=== PATIENT | male | born 1940 | race Caucasian/White ===

== ENCOUNTER 2017-03-31 12:25 | Day surgery (SDC) | payer OTHER ==
[~2017-03-31 12:25] MED LIST: ALBU90OI6 INH; ALBU90OI61 INH; AMOCLA500 PO; AMOCLA875; AMOCLA875 PO; AMOX1XR PO; ASPI325; ASPI325 PO; ASPI325EC; ASPI500 PO; ASPI81EC PO; ATOR10; ATOR10 PO; BUME1 PO; BUME2; BUME2 PO; Bactrim Ds Tab1 EACH PO; CALCA500CH PO; CARV3.125 PO; CLIN300 PO; CLOP75 PO; CRUTCH3 XX; Centrum Silver1 EAC1 PO; Culturelle1 CAP PO; DIPASPER; DIPASPER PO; ECOTRIN PO; ESCI10; ESCI10 PO; ESCI20 PO; FURO40; HYDACE5; HYDACE5 PO; HYDR1TAB94; HYDR1TAB94 PO; Hydrocodone-Ap1 EA23 PO; INSLI100I SC; INSR10I; INSR10I SC; INSU7030P; INSUASPI; INSUASPI SS; INSUGL100V SQ; INSULANI; INSULANI SC; INSULANPEN; INSULANPEN SC; INSULANPEN SQ; ISOMON30 PO; Ibuprofen Ib200 MG PO; LATANOPROST2.5 ML RIGHTEYE; LEVFLO500 PO; LISI20; LISI20 PO; Lantus100 UNIT/1; METF500; METF500 PO; METO10 PO; METO25 PO; METO25ER PO; MULT50L PO; MULVITA; NAPR500 PO; Norco 5-325 Ta1 EACH PO; Novolog100 UNIT/1; OMEP20ER; OMEP20ER PO; OXYACE5T PO; Omeprazole20 M1 PO; PIOG15; PIOG30 PO; POTA10T PO; POTCHL10ER; POTCHL10ER PO; PROM25 PO; QUET25 PO; RANI150; RXCLIN PO; RXHYDACE PO; RXONDA4ODT MM; RXPROACE PO; SENIOR TABS1 EACH PO; SPIR25; SPIR25 PO; SULTRIDS PO; TEMA15; TEMA15 PO; TRAM50 PO; UNK ABX; ZOLP5; ZOLP5 PO; [UNRECOGNIZED DRUG - CODE]; [UNRECOGNIZED DRUG - CODE] PO; [UNRECOGNIZED DRUG - OTHER]; [UNRECOGNIZED DRUG - REMARK]
[2017-06-28] MEDS ORDERED: Novolog100 UNIT/2 SC (11:11)
== END 2017-03-31 16:10 | disposition home or self-care (01) ==
LOC: WOUND 12:25
DX: Z48.00 Encounter for change or removal of nonsurgical wound dressing (principal); E11.621 Type 2 diabetes mellitus with foot ulcer; L97.411 Non-pressure chronic ulcer of right heel and midfoot limited to breakdown of skin; I25.84 Coronary atherosclerosis due to calcified coronary lesion; I13.0 Hypertensive heart and chronic kidney disease with heart failure and stage 1 through stage 4 chronic kidney disease, or unspecified chronic kidney disease; I50.9 Heart failure, unspecified; N18.3 Chronic kidney disease, stage 3 (moderate); E11.22 Type 2 diabetes mellitus with diabetic chronic kidney disease; I73.9 Peripheral vascular disease, unspecified; E11.39 Type 2 diabetes mellitus with other diabetic ophthalmic complication; H54.8 Legal blindness, as defined in USA
CPT/HCPCS: 87070; 87205; G0463

== ENCOUNTER 2017-06-28 10:01 | Emergency (ER) | payer OTHER ==
[~2017-06-28] VITALS: Ht 177.8 cm; Wt 104.8 kg
[2017-06-28] MEDS ORDERED: BUME2 PO (10:49)
[2017-06-28] MEDS ORDERED: CLOP75 PO (10:49)
[2017-06-28] MEDS ORDERED: ATOR10 PO (10:49)
[2017-06-28] MEDS ORDERED: HYDR1TAB94 PO (10:50)
[2017-06-28] MEDS ORDERED: INSULANPEN SC (10:53)
[2017-06-28] MEDS ORDERED: METO25 PO (11:10)
[2017-06-28] MEDS ORDERED: Novolog100 UNIT/2 (11:11)
[2017-06-28] MEDS ORDERED: Omeprazole20 M1 PO (11:11)
[2017-06-28] MEDS ORDERED: Micro-K10 MEQ PO (11:11)
== END 2017-06-28 12:52 | disposition home or self-care (01) ==
LOC: ER 10:01
DX: E11.649 Type 2 diabetes mellitus with hypoglycemia without coma (principal); I13.0 Hypertensive heart and chronic kidney disease with heart failure and stage 1 through stage 4 chronic kidney disease, or unspecified chronic kidney disease; I50.9 Heart failure, unspecified; E11.22 Type 2 diabetes mellitus with diabetic chronic kidney disease; N18.3 Chronic kidney disease, stage 3 (moderate); Z86.73 Personal history of transient ischemic attack (TIA), and cerebral infarction without residual deficits; K21.9 Gastro-esophageal reflux disease without esophagitis; E66.9 Obesity, unspecified; Z79.82 Long term (current) use of aspirin; Z79.2 Long term (current) use of antibiotics; Z79.899 Other long term (current) drug therapy; Z88.5 Allergy status to narcotic agent; Z79.4 Long term (current) use of insulin; Z79.891 Long term (current) use of opiate analgesic
CPT/HCPCS: 82947; 96374; 99283

== ENCOUNTER 2017-07-22 10:01 | Inpatient (IN) | payer OTHER ==
[~2017-07-22] VITALS: Ht 177.8 cm; Wt 102.9 kg
[~2017-07-22 10:01] MED LIST changes: +Micro-K10 MEQ PO; +Novolog100 UNIT/2 SC
[2017-07-22 10:42] LABS: BASOPHILS ABSOLUTE AUTO 0.03 K/mm3 (0.00-0.23); BASOPHILS PERCENT AUTO 0 % (0-2); EOSINOPHILS ABSOLUTE AUTO 0.95 K/mm3 (0.00-0.68); EOSINOPHILS PERCENT AUTO 7 % (0-6); Hematocrit 40.9 % (37.0-53.0); Hemoglobin 13.5 g/dL (13.5-17.5); IMMATURE GRAN ABSOLUTE AUTO 0.06 K/mm3 (0.00-0.10); IMMATURE GRAN PERCENT AUTO 0 % (0-1); LYMPHOCYTES ABSOLUTE AUTO 1.74 K/mm3 (0.84-5.20); LYMPHOCYTES PERCENT AUTO 12 % (21-46); MONOCYTES ABSOLUTE AUTO 0.81 K/mm3 (0.16-1.47); MONOCYTES PERCENT AUTO 6 % (4-13); Mean Corpuscular HGB 28.5 pg (26.0-34.0); Mean Corpuscular Volume 87 fL (80-100); Mean Platelet Volume 10.6 fL (9.1-12.4); NEUTROPHILS PERCENT AUTO 75 % (41-73); Platelet Count 250 K/mm3 (150-400); RDW Coefficient Variation 13.7 % (11.7-14.2); RDW Standard Deviation 43.2 fL (35.1-46.3); Red Blood Cell Count 4.73 M/mm3 (4.30-5.90); White Blood Cell Count 14.19 K/mm3 (4.00-11.30)
[2017-07-22 10:54] LABS: Albumin, Blood 3.4 g/dL (3.4-5.0); Albumin/Globulin Ratio 0.7 (0.8-1.8); Bilirubin, Total 0.5 mg/dL (0.1-1.0); Bun/Creatinine Ratio 26.3 (12.0-20.0); Calcium, Blood 8.6 mg/dL (8.5-10.1); Creatinine, Blood 1.79 mg/dL (0.60-1.20); Globulin, Blood 4.8 g/dL (2.2-4.0); Potassium, Blood 3.9 mmol/L (3.5-5.5); Total Protein, Blood 8.2 g/dL (6.4-8.2)
[2017-07-22] MEDS ORDERED: ASPI325 PO (11:46)
[2017-07-22] MEDS ORDERED: LATANOPROST2.5 ML RIGHTEYE (13:39)
[2017-07-22] MEDS ORDERED: HYDR1TAB94 PO (13:40)
[2017-07-24 04:41] LABS: Hematocrit 36.6 % (37.0-53.0); Hemoglobin 11.9 g/dL (13.5-17.5); Mean Corpuscular HGB 28.6 pg (26.0-34.0); Mean Corpuscular HGB Conc 32.5 g/dL (31.5-36.5); Mean Corpuscular Volume 88 fL (80-100); Mean Platelet Volume 10.2 fL (9.1-12.4); Platelet Count 216 K/mm3 (150-400); RDW Standard Deviation 45.5 fL (35.1-46.3); Red Blood Cell Count 4.16 M/mm3 (4.30-5.90); White Blood Cell Count 9.23 K/mm3 (4.00-11.30)
[2017-07-24 05:13] LABS: Bun/Creatinine Ratio 16.4 (12.0-20.0); Calcium, Blood 8.3 mg/dL (8.5-10.1); Creatinine, Blood 2.13 mg/dL (0.60-1.20); Potassium, Blood 4.1 mmol/L (3.5-5.5)
[2017-07-24 14:17] LABS: Vancomycin, Trough 14.7 ug/mL (5.0-10.0)
[2017-07-25 05:13] LABS: Bun/Creatinine Ratio 16.9 (12.0-20.0); Calcium, Blood 8.1 mg/dL (8.5-10.1); Creatinine, Blood 1.83 mg/dL (0.60-1.20); Potassium, Blood 4.3 mmol/L (3.5-5.5)
[2017-07-25] MEDS ORDERED: Acetaminophen325 M1 PO (12:33)
[2017-07-25] MEDS ORDERED: Artificial Tea1 EACH BOTHEYES (12:35)
[2017-07-25] MEDS ORDERED: Ceftriaxone2 G1 IV (12:36)
== END 2017-07-25 17:08 | DRG 872 ==
LOC: ER 10:01 → MEDS 10:02 → ENPENDDIS 07-25 09:30 → MEDS 07-25 17:08
PROVIDERS: Family Medicine; Internal Medicine
DX: A41.9 Sepsis, unspecified organism (principal); I50.32 Chronic diastolic (congestive) heart failure; I13.0 Hypertensive heart and chronic kidney disease with heart failure and stage 1 through stage 4 chronic kidney disease, or unspecified chronic kidney disease; E11.22 Type 2 diabetes mellitus with diabetic chronic kidney disease; E11.51 Type 2 diabetes mellitus with diabetic peripheral angiopathy without gangrene; E11.40 Type 2 diabetes mellitus with diabetic neuropathy, unspecified; N18.3 Chronic kidney disease, stage 3 (moderate); I25.10 Atherosclerotic heart disease of native coronary artery without angina pectoris; E11.39 Type 2 diabetes mellitus with other diabetic ophthalmic complication; H54.8 Legal blindness, as defined in USA; E11.621 Type 2 diabetes mellitus with foot ulcer; K21.9 Gastro-esophageal reflux disease without esophagitis; Z89.422 Acquired absence of other left toe(s); Z89.421 Acquired absence of other right toe(s); Z95.1 Presence of aortocoronary bypass graft; Z87.891 Personal history of nicotine dependence; Z88.5 Allergy status to narcotic agent; Z79.02 Long term (current) use of antithrombotics/antiplatelets; Z79.4 Long term (current) use of insulin; Z79.899 Other long term (current) drug therapy; Z86.73 Personal history of transient ischemic attack (TIA), and cerebral infarction without residual deficits
CPT/HCPCS: 36415; 73630; 73718; 80048; 80053; 80202; 82947; 83605; 85025; 85027; 87070; 87077; 87147; 87186; 87205; 96365; 97110; 97116; 97162; 97165; 97530; 97535; 99285; G8978; G8979; G8987; G8988; J0696; J1815; J2543; J3370; J7030; J7050

== ENCOUNTER → 2017-09-02 | Outpatient (CLI) | payer OTHER ==
[~2017-09-02] MED LIST changes: +Acetaminophen325 M1 PO; +Artificial Tea1 EACH BOTHEYES; +Ceftriaxone2 G1 IV
== END ==
LOC: LAB SHORT 15:38 → LAB 15:38
DX: E11.621 Type 2 diabetes mellitus with foot ulcer (principal)
CPT/HCPCS: 87070; 87077; 87147; 87186; 87205

== ENCOUNTER 2017-09-19 12:07 | Day surgery (SDC) | payer OTHER | END 2017-09-19 13:58 | disposition home or self-care (01) | LOC: WOUND | DX: Z48.00 Encounter for change or removal of nonsurgical wound dressing (principal); E11.621 Type 2 diabetes mellitus with foot ulcer; L97.512 Non-pressure chronic ulcer of other part of right foot with fat layer exposed; I25.84 Coronary atherosclerosis due to calcified coronary lesion; I12.9 Hypertensive chronic kidney disease with stage 1 through stage 4 chronic kidney disease, or unspecified chronic kidney disease; I10 Essential (primary) hypertension; I25.10 Atherosclerotic heart disease of native coronary artery without angina pectoris; I73.9 Peripheral vascular disease, unspecified; E11.22 Type 2 diabetes mellitus with diabetic chronic kidney disease; N18.3 Chronic kidney disease, stage 3 (moderate); H54.8 Legal blindness, as defined in USA; E11.39 Type 2 diabetes mellitus with other diabetic ophthalmic complication; I50.9 Heart failure, unspecified; Z87.891 Personal history of nicotine dependence; Z88.5 Allergy status to narcotic agent; Z89.421 Acquired absence of other right toe(s); Z89.412 Acquired absence of left great toe | CPT/HCPCS: G0463 ==

== ENCOUNTER 2018-01-11 00:09 | Day surgery (SDC) | payer OTHER | END 2018-01-11 22:57 | disposition home or self-care (01) | LOC: WOUND 00:09 | DX: E11.621 Type 2 diabetes mellitus with foot ulcer (principal); E11.40 Type 2 diabetes mellitus with diabetic neuropathy, unspecified; E11.51 Type 2 diabetes mellitus with diabetic peripheral angiopathy without gangrene; L97.519 Non-pressure chronic ulcer of other part of right foot with unspecified severity; I87.2 Venous insufficiency (chronic) (peripheral); Z89.421 Acquired absence of other right toe(s); Z89.419 Acquired absence of unspecified great toe ==

== ENCOUNTER 2018-02-15 14:20 | Day surgery (SDC) | payer OTHER | END 2018-02-15 22:39 | disposition home or self-care (01) | LOC: RAD 14:20 | DX: E11.621 Type 2 diabetes mellitus with foot ulcer (principal); Z89.421 Acquired absence of other right toe(s); Z89.419 Acquired absence of unspecified great toe; N18.3 Chronic kidney disease, stage 3 (moderate); E11.40 Type 2 diabetes mellitus with diabetic neuropathy, unspecified; I73.9 Peripheral vascular disease, unspecified; I87.2 Venous insufficiency (chronic) (peripheral) | CPT/HCPCS: 73630 ==

== ENCOUNTER 2018-03-01 13:00 | Day surgery (SDC) | payer OTHER | END 2018-03-01 22:50 | disposition home or self-care (01) | LOC: WOUND 13:00 | DX: E11.621 Type 2 diabetes mellitus with foot ulcer (principal); L97.512 Non-pressure chronic ulcer of other part of right foot with fat layer exposed; N18.3 Chronic kidney disease, stage 3 (moderate); E11.40 Type 2 diabetes mellitus with diabetic neuropathy, unspecified; I73.9 Peripheral vascular disease, unspecified; I87.2 Venous insufficiency (chronic) (peripheral); Z89.419 Acquired absence of unspecified great toe; Z89.421 Acquired absence of other right toe(s) ==

== ENCOUNTER 2018-03-03 00:11 | Day surgery (SDC) | payer OTHER | END 2018-03-03 22:50 | disposition home or self-care (01) | LOC: WOUND 00:11 | DX: E11.621 Type 2 diabetes mellitus with foot ulcer (principal); L97.512 Non-pressure chronic ulcer of other part of right foot with fat layer exposed; L97.929 Non-pressure chronic ulcer of unspecified part of left lower leg with unspecified severity; Z89.421 Acquired absence of other right toe(s); Z89.419 Acquired absence of unspecified great toe; N18.3 Chronic kidney disease, stage 3 (moderate); E11.40 Type 2 diabetes mellitus with diabetic neuropathy, unspecified; I73.9 Peripheral vascular disease, unspecified; I87.2 Venous insufficiency (chronic) (peripheral) | CPT/HCPCS: G0463 ==

== ENCOUNTER 2018-03-15 12:55 | Day surgery (SDC) | payer OTHER | END 2018-03-15 22:44 | disposition home or self-care (01) | LOC: WOUND 12:55 | DX: E11.621 Type 2 diabetes mellitus with foot ulcer (principal); L97.512 Non-pressure chronic ulcer of other part of right foot with fat layer exposed; Z89.421 Acquired absence of other right toe(s); Z89.419 Acquired absence of unspecified great toe; N18.3 Chronic kidney disease, stage 3 (moderate); E11.40 Type 2 diabetes mellitus with diabetic neuropathy, unspecified; I73.9 Peripheral vascular disease, unspecified; I87.2 Venous insufficiency (chronic) (peripheral) ==

== ENCOUNTER 2018-03-22 13:50 | Day surgery (SDC) | payer OTHER | END 2018-03-22 22:40 | disposition home or self-care (01) | LOC: WOUND 13:50 | DX: E11.621 Type 2 diabetes mellitus with foot ulcer (principal); L97.512 Non-pressure chronic ulcer of other part of right foot with fat layer exposed; Z89.421 Acquired absence of other right toe(s); Z89.419 Acquired absence of unspecified great toe; N18.3 Chronic kidney disease, stage 3 (moderate); E11.40 Type 2 diabetes mellitus with diabetic neuropathy, unspecified; I73.9 Peripheral vascular disease, unspecified; I87.2 Venous insufficiency (chronic) (peripheral); Z79.4 Long term (current) use of insulin | CPT/HCPCS: G0463 ==

== ENCOUNTER 2018-03-29 00:25 | Day surgery (SDC) | payer OTHER | END 2018-03-29 22:38 | disposition home or self-care (01) | LOC: WOUND 00:25 | DX: E11.621 Type 2 diabetes mellitus with foot ulcer (principal); L97.512 Non-pressure chronic ulcer of other part of right foot with fat layer exposed; Z89.421 Acquired absence of other right toe(s); Z89.419 Acquired absence of unspecified great toe; N18.3 Chronic kidney disease, stage 3 (moderate); E11.40 Type 2 diabetes mellitus with diabetic neuropathy, unspecified; I73.9 Peripheral vascular disease, unspecified; I87.2 Venous insufficiency (chronic) (peripheral) | CPT/HCPCS: G0463 ==

== ENCOUNTER 2018-04-05 00:22 | Day surgery (SDC) | payer OTHER | END 2018-04-05 22:41 | disposition home or self-care (01) | LOC: WOUND 00:22 | DX: E11.621 Type 2 diabetes mellitus with foot ulcer (principal); L97.512 Non-pressure chronic ulcer of other part of right foot with fat layer exposed; Z89.421 Acquired absence of other right toe(s); Z89.419 Acquired absence of unspecified great toe; N18.3 Chronic kidney disease, stage 3 (moderate); E11.40 Type 2 diabetes mellitus with diabetic neuropathy, unspecified; I73.9 Peripheral vascular disease, unspecified; I87.2 Venous insufficiency (chronic) (peripheral); Z79.01 Long term (current) use of anticoagulants; Z79.4 Long term (current) use of insulin | CPT/HCPCS: G0463 ==

== ENCOUNTER 2018-04-12 13:00 | Day surgery (SDC) | payer OTHER | END 2018-04-12 22:50 | disposition home or self-care (01) | LOC: WOUND 13:00 | DX: E11.621 Type 2 diabetes mellitus with foot ulcer (principal); L97.515 Non-pressure chronic ulcer of other part of right foot with muscle involvement without evidence of necrosis; Z89.421 Acquired absence of other right toe(s); Z89.411 Acquired absence of right great toe; I87.2 Venous insufficiency (chronic) (peripheral); N18.3 Chronic kidney disease, stage 3 (moderate); E11.40 Type 2 diabetes mellitus with diabetic neuropathy, unspecified; I73.9 Peripheral vascular disease, unspecified; Z79.4 Long term (current) use of insulin ==

== ENCOUNTER 2018-04-26 00:22 | Day surgery (SDC) | payer OTHER | END 2018-04-26 22:46 | disposition home or self-care (01) | LOC: WOUND 00:22 | DX: E11.621 Type 2 diabetes mellitus with foot ulcer (principal); L97.512 Non-pressure chronic ulcer of other part of right foot with fat layer exposed; Z89.421 Acquired absence of other right toe(s); Z89.419 Acquired absence of unspecified great toe; N18.3 Chronic kidney disease, stage 3 (moderate); E11.40 Type 2 diabetes mellitus with diabetic neuropathy, unspecified; I73.9 Peripheral vascular disease, unspecified; I87.2 Venous insufficiency (chronic) (peripheral); Z79.4 Long term (current) use of insulin ==

== ENCOUNTER 2018-05-03 00:30 | Day surgery (SDC) | payer OTHER | END 2018-05-03 22:44 | disposition home or self-care (01) | LOC: WOUND 00:30 | DX: E11.621 Type 2 diabetes mellitus with foot ulcer (principal); L97.512 Non-pressure chronic ulcer of other part of right foot with fat layer exposed; Z89.421 Acquired absence of other right toe(s); Z89.411 Acquired absence of right great toe; I87.2 Venous insufficiency (chronic) (peripheral); N18.3 Chronic kidney disease, stage 3 (moderate); E11.40 Type 2 diabetes mellitus with diabetic neuropathy, unspecified; I73.9 Peripheral vascular disease, unspecified; Z79.4 Long term (current) use of insulin; Z79.01 Long term (current) use of anticoagulants | CPT/HCPCS: G0463 ==

== ENCOUNTER 2018-05-24 00:26 | Day surgery (SDC) | payer OTHER | END 2018-05-24 22:48 | disposition home or self-care (01) | LOC: WOUND | DX: E11.621 Type 2 diabetes mellitus with foot ulcer (principal); L97.512 Non-pressure chronic ulcer of other part of right foot with fat layer exposed; E11.40 Type 2 diabetes mellitus with diabetic neuropathy, unspecified; E11.51 Type 2 diabetes mellitus with diabetic peripheral angiopathy without gangrene; E11.36 Type 2 diabetes mellitus with diabetic cataract; E11.39 Type 2 diabetes mellitus with other diabetic ophthalmic complication; H42 Glaucoma in diseases classified elsewhere; E11.69 Type 2 diabetes mellitus with other specified complication; M86.9 Osteomyelitis, unspecified; I13.0 Hypertensive heart and chronic kidney disease with heart failure and stage 1 through stage 4 chronic kidney disease, or unspecified chronic kidney disease; I50.9 Heart failure, unspecified; N18.3 Chronic kidney disease, stage 3 (moderate); I25.10 Atherosclerotic heart disease of native coronary artery without angina pectoris; I25.2 Old myocardial infarction; M06.9 Rheumatoid arthritis, unspecified; M10.9 Gout, unspecified; I87.2 Venous insufficiency (chronic) (peripheral); Z89.421 Acquired absence of other right toe(s); Z89.419 Acquired absence of unspecified great toe ==

== ENCOUNTER 2018-06-07 00:05 | Day surgery (SDC) | payer OTHER | END 2018-06-07 22:41 | disposition home or self-care (01) | LOC: WOUND 00:05 | DX: E11.621 Type 2 diabetes mellitus with foot ulcer (principal); L97.512 Non-pressure chronic ulcer of other part of right foot with fat layer exposed; I13.0 Hypertensive heart and chronic kidney disease with heart failure and stage 1 through stage 4 chronic kidney disease, or unspecified chronic kidney disease; I50.9 Heart failure, unspecified; E11.22 Type 2 diabetes mellitus with diabetic chronic kidney disease; N18.3 Chronic kidney disease, stage 3 (moderate); E11.40 Type 2 diabetes mellitus with diabetic neuropathy, unspecified; E11.36 Type 2 diabetes mellitus with diabetic cataract; E11.51 Type 2 diabetes mellitus with diabetic peripheral angiopathy without gangrene; E11.69 Type 2 diabetes mellitus with other specified complication; M86.9 Osteomyelitis, unspecified; I25.2 Old myocardial infarction; G47.30 Sleep apnea, unspecified; M06.9 Rheumatoid arthritis, unspecified; F03.90 Unspecified dementia, unspecified severity, without behavioral disturbance, psychotic disturbance, mood disturbance, and anxiety; Z89.421 Acquired absence of other right toe(s); Z89.419 Acquired absence of unspecified great toe ==

== ENCOUNTER 2018-06-14 00:54 | Day surgery (SDC) | payer OTHER | END 2018-06-14 23:14 | disposition home or self-care (01) | LOC: WOUND 00:54 | DX: E11.621 Type 2 diabetes mellitus with foot ulcer (principal); L97.512 Non-pressure chronic ulcer of other part of right foot with fat layer exposed; I13.0 Hypertensive heart and chronic kidney disease with heart failure and stage 1 through stage 4 chronic kidney disease, or unspecified chronic kidney disease; E11.22 Type 2 diabetes mellitus with diabetic chronic kidney disease; N18.3 Chronic kidney disease, stage 3 (moderate); I50.9 Heart failure, unspecified; I25.10 Atherosclerotic heart disease of native coronary artery without angina pectoris; I25.2 Old myocardial infarction; E11.40 Type 2 diabetes mellitus with diabetic neuropathy, unspecified; I73.9 Peripheral vascular disease, unspecified; I87.2 Venous insufficiency (chronic) (peripheral); Z89.421 Acquired absence of other right toe(s); G47.30 Sleep apnea, unspecified ==

== ENCOUNTER 2018-06-21 08:53 | Day surgery (SDC) | payer OTHER | END 2018-06-21 23:06 | disposition home or self-care (01) | LOC: WOUND 08:53 | DX: E11.621 Type 2 diabetes mellitus with foot ulcer (principal); L97.512 Non-pressure chronic ulcer of other part of right foot with fat layer exposed; E11.40 Type 2 diabetes mellitus with diabetic neuropathy, unspecified; I13.0 Hypertensive heart and chronic kidney disease with heart failure and stage 1 through stage 4 chronic kidney disease, or unspecified chronic kidney disease; E11.22 Type 2 diabetes mellitus with diabetic chronic kidney disease; I50.9 Heart failure, unspecified; N18.3 Chronic kidney disease, stage 3 (moderate); I25.10 Atherosclerotic heart disease of native coronary artery without angina pectoris; I25.2 Old myocardial infarction; I73.9 Peripheral vascular disease, unspecified; I87.2 Venous insufficiency (chronic) (peripheral); Z89.411 Acquired absence of right great toe; G47.30 Sleep apnea, unspecified; Z89.421 Acquired absence of other right toe(s) | CPT/HCPCS: G0463; Q4196 ==

== ENCOUNTER 2018-07-05 08:50 | Day surgery (SDC) | payer OTHER | END 2018-07-05 22:51 | disposition home or self-care (01) | LOC: WOUND 08:50 | DX: E11.621 Type 2 diabetes mellitus with foot ulcer (principal); L97.512 Non-pressure chronic ulcer of other part of right foot with fat layer exposed; E11.22 Type 2 diabetes mellitus with diabetic chronic kidney disease; N18.3 Chronic kidney disease, stage 3 (moderate); I50.9 Heart failure, unspecified; E11.40 Type 2 diabetes mellitus with diabetic neuropathy, unspecified; I25.10 Atherosclerotic heart disease of native coronary artery without angina pectoris; I25.2 Old myocardial infarction; F03.90 Unspecified dementia, unspecified severity, without behavioral disturbance, psychotic disturbance, mood disturbance, and anxiety; I73.9 Peripheral vascular disease, unspecified; I87.2 Venous insufficiency (chronic) (peripheral); G47.30 Sleep apnea, unspecified; Z89.421 Acquired absence of other right toe(s) | CPT/HCPCS: Q4196 ==

== ENCOUNTER 2018-07-12 08:58 | Day surgery (SDC) | payer OTHER | END 2018-07-12 22:43 | disposition home or self-care (01) | LOC: WOUND 08:58 | DX: E11.621 Type 2 diabetes mellitus with foot ulcer (principal); L97.512 Non-pressure chronic ulcer of other part of right foot with fat layer exposed; I13.0 Hypertensive heart and chronic kidney disease with heart failure and stage 1 through stage 4 chronic kidney disease, or unspecified chronic kidney disease; E11.22 Type 2 diabetes mellitus with diabetic chronic kidney disease; N18.3 Chronic kidney disease, stage 3 (moderate); I50.9 Heart failure, unspecified; I25.10 Atherosclerotic heart disease of native coronary artery without angina pectoris; I25.2 Old myocardial infarction; E11.40 Type 2 diabetes mellitus with diabetic neuropathy, unspecified; E11.51 Type 2 diabetes mellitus with diabetic peripheral angiopathy without gangrene; I87.2 Venous insufficiency (chronic) (peripheral); G47.30 Sleep apnea, unspecified; F03.90 Unspecified dementia, unspecified severity, without behavioral disturbance, psychotic disturbance, mood disturbance, and anxiety; Z89.421 Acquired absence of other right toe(s) | CPT/HCPCS: Q4196 ==

== ENCOUNTER 2018-07-19 08:49 | Day surgery (SDC) | payer OTHER | END 2018-07-20 22:54 | disposition home or self-care (01) | LOC: WOUND 08:49 | DX: E11.621 Type 2 diabetes mellitus with foot ulcer (principal); L97.511 Non-pressure chronic ulcer of other part of right foot limited to breakdown of skin; I13.0 Hypertensive heart and chronic kidney disease with heart failure and stage 1 through stage 4 chronic kidney disease, or unspecified chronic kidney disease; E11.22 Type 2 diabetes mellitus with diabetic chronic kidney disease; N18.3 Chronic kidney disease, stage 3 (moderate); I50.9 Heart failure, unspecified; E11.51 Type 2 diabetes mellitus with diabetic peripheral angiopathy without gangrene; E11.40 Type 2 diabetes mellitus with diabetic neuropathy, unspecified; I87.2 Venous insufficiency (chronic) (peripheral); I25.10 Atherosclerotic heart disease of native coronary artery without angina pectoris; I25.2 Old myocardial infarction; G47.30 Sleep apnea, unspecified; Z89.421 Acquired absence of other right toe(s) | CPT/HCPCS: Q4196 ==

== ENCOUNTER 2018-07-26 00:14 | Day surgery (SDC) | payer OTHER | END 2018-07-26 22:46 | disposition home or self-care (01) | LOC: WOUND 00:14 | DX: E11.621 Type 2 diabetes mellitus with foot ulcer (principal); L97.512 Non-pressure chronic ulcer of other part of right foot with fat layer exposed; E11.51 Type 2 diabetes mellitus with diabetic peripheral angiopathy without gangrene; E11.40 Type 2 diabetes mellitus with diabetic neuropathy, unspecified; I87.2 Venous insufficiency (chronic) (peripheral); I13.0 Hypertensive heart and chronic kidney disease with heart failure and stage 1 through stage 4 chronic kidney disease, or unspecified chronic kidney disease; E11.22 Type 2 diabetes mellitus with diabetic chronic kidney disease; N18.3 Chronic kidney disease, stage 3 (moderate); I50.9 Heart failure, unspecified; I25.10 Atherosclerotic heart disease of native coronary artery without angina pectoris; I25.2 Old myocardial infarction; G47.30 Sleep apnea, unspecified; Z89.421 Acquired absence of other right toe(s); Z89.419 Acquired absence of unspecified great toe | CPT/HCPCS: Q4196 ==

== ENCOUNTER 2018-08-02 08:50 | Day surgery (SDC) | payer OTHER | END 2018-08-02 23:01 | disposition home or self-care (01) | LOC: WOUND 08:50 | DX: E11.621 Type 2 diabetes mellitus with foot ulcer (principal); L97.511 Non-pressure chronic ulcer of other part of right foot limited to breakdown of skin; E11.40 Type 2 diabetes mellitus with diabetic neuropathy, unspecified; E11.51 Type 2 diabetes mellitus with diabetic peripheral angiopathy without gangrene; E11.22 Type 2 diabetes mellitus with diabetic chronic kidney disease; N18.3 Chronic kidney disease, stage 3 (moderate); I87.2 Venous insufficiency (chronic) (peripheral); I11.0 Hypertensive heart disease with heart failure; I50.9 Heart failure, unspecified; I25.10 Atherosclerotic heart disease of native coronary artery without angina pectoris; G47.30 Sleep apnea, unspecified; I25.2 Old myocardial infarction; F03.90 Unspecified dementia, unspecified severity, without behavioral disturbance, psychotic disturbance, mood disturbance, and anxiety; Z89.421 Acquired absence of other right toe(s) | CPT/HCPCS: Q4196 ==

== ENCOUNTER 2018-08-09 08:44 | Day surgery (SDC) | payer OTHER | END 2018-08-09 22:56 | disposition home or self-care (01) | LOC: WOUND 08:44 | DX: E11.621 Type 2 diabetes mellitus with foot ulcer (principal); L97.512 Non-pressure chronic ulcer of other part of right foot with fat layer exposed; I13.0 Hypertensive heart and chronic kidney disease with heart failure and stage 1 through stage 4 chronic kidney disease, or unspecified chronic kidney disease; N18.3 Chronic kidney disease, stage 3 (moderate); E11.51 Type 2 diabetes mellitus with diabetic peripheral angiopathy without gangrene; I87.2 Venous insufficiency (chronic) (peripheral); E11.40 Type 2 diabetes mellitus with diabetic neuropathy, unspecified; Z89.419 Acquired absence of unspecified great toe; Z89.421 Acquired absence of other right toe(s) | CPT/HCPCS: Q4196 ==

== ENCOUNTER 2018-08-16 08:49 | Day surgery (SDC) | payer OTHER | END 2018-08-16 22:53 | disposition home or self-care (01) | LOC: WOUND 08:49 | DX: E11.621 Type 2 diabetes mellitus with foot ulcer (principal); L97.512 Non-pressure chronic ulcer of other part of right foot with fat layer exposed; E11.22 Type 2 diabetes mellitus with diabetic chronic kidney disease; I12.9 Hypertensive chronic kidney disease with stage 1 through stage 4 chronic kidney disease, or unspecified chronic kidney disease; N18.3 Chronic kidney disease, stage 3 (moderate); E11.40 Type 2 diabetes mellitus with diabetic neuropathy, unspecified; E11.51 Type 2 diabetes mellitus with diabetic peripheral angiopathy without gangrene; I87.2 Venous insufficiency (chronic) (peripheral); Z89.421 Acquired absence of other right toe(s); Z89.419 Acquired absence of unspecified great toe | CPT/HCPCS: G0463 ==

== ENCOUNTER 2018-09-05 08:40 | Day surgery (SDC) | payer OTHER | END 2018-09-05 23:09 | disposition home or self-care (01) | LOC: WOUND 08:40 | DX: E11.621 Type 2 diabetes mellitus with foot ulcer (principal); L97.511 Non-pressure chronic ulcer of other part of right foot limited to breakdown of skin; E11.40 Type 2 diabetes mellitus with diabetic neuropathy, unspecified; E11.51 Type 2 diabetes mellitus with diabetic peripheral angiopathy without gangrene; I73.9 Peripheral vascular disease, unspecified; I87.2 Venous insufficiency (chronic) (peripheral); I13.0 Hypertensive heart and chronic kidney disease with heart failure and stage 1 through stage 4 chronic kidney disease, or unspecified chronic kidney disease; E11.22 Type 2 diabetes mellitus with diabetic chronic kidney disease; N18.3 Chronic kidney disease, stage 3 (moderate); I50.9 Heart failure, unspecified; I25.2 Old myocardial infarction; F03.90 Unspecified dementia, unspecified severity, without behavioral disturbance, psychotic disturbance, mood disturbance, and anxiety; G47.30 Sleep apnea, unspecified; Z89.421 Acquired absence of other right toe(s) ==

== ENCOUNTER 2018-09-13 12:11 | Inpatient (IN) | payer OTHER ==
[~2018-09-13] VITALS: Ht 175.3 cm; Wt 106.5 kg
[2018-09-13 13:15] LABS: BASOPHILS ABSOLUTE AUTO 0.04 K/mm3 (0.00-0.23); BASOPHILS PERCENT AUTO 0 % (0-2); EOSINOPHILS ABSOLUTE AUTO 0.64 K/mm3 (0.00-0.68); EOSINOPHILS PERCENT AUTO 5 % (0-6); Hematocrit 42.6 % (37.0-53.0); Hemoglobin 13.9 g/dL (13.5-17.5); IMMATURE GRAN ABSOLUTE AUTO 0.05 K/mm3 (0.00-0.10); IMMATURE GRAN PERCENT AUTO 0 % (0-1); LYMPHOCYTES ABSOLUTE AUTO 1.27 K/mm3 (0.84-5.20); LYMPHOCYTES PERCENT AUTO 10 % (21-46); MONOCYTES ABSOLUTE AUTO 0.89 K/mm3 (0.16-1.47); MONOCYTES PERCENT AUTO 7 % (4-13); Mean Corpuscular HGB 29.1 pg (26.0-34.0); Mean Corpuscular HGB Conc 32.6 g/dL (31.5-36.5); Mean Corpuscular Volume 89 fL (80-100); NEUTROPHILS ABSOLUTE AUTO 9.65 K/mm3 (1.96-9.15); NEUTROPHILS PERCENT AUTO 77 % (41-73); Platelet Count 229 K/mm3 (150-400); RDW Coefficient Variation 13.5 % (11.7-14.2); RDW Standard Deviation 44.2 fL (35.1-46.3); Red Blood Cell Count 4.78 M/mm3 (4.30-5.90); White Blood Cell Count 12.54 K/mm3 (4.00-11.30)
[2018-09-13 13:41] LABS: Potassium, Blood 3.8 mmol/L (3.5-5.5)
[2018-09-13 14:05] LABS: Albumin, Blood 3.2 g/dL (3.4-5.0); C-REACTIVE PROTEIN, EXT RANGE 2.42 mg/dL (0.000-0.300)
[2018-09-13 14:07] LABS: Albumin/Globulin Ratio 0.7 (0.8-1.8); Bilirubin, Total 0.7 mg/dL (0.1-1.0); Bun/Creatinine Ratio 22.6 (12.0-20.0); Creatinine, Blood 1.77 mg/dL (0.60-1.20); Globulin, Blood 4.4 g/dL (2.2-4.0); Total Protein, Blood 7.6 g/dL (6.4-8.2)
[2018-09-13] MEDS ORDERED: ALBU90OI61 INH (15:15)
--- NOTE | 2018-09-13 20:29 | NUR ---
called consults to the [address] HUGGINS ordered. They will followup tomorrow.
--- NOTE | 2018-09-13 20:33 | NUR ---
DR Miller called to say he won't consult unless the PT needs a below knee amputation. DR Armando will see PT 09/14/[address] Miller will not unless amputation is recommended for BKA. Will make note.
[2018-09-14 05:49] LABS: BASOPHILS ABSOLUTE AUTO 0.03 K/mm3 (0.00-0.23); BASOPHILS PERCENT AUTO 0 % (0-2); EOSINOPHILS PERCENT AUTO 8 % (0-6); Hematocrit 39.9 % (37.0-53.0); Hemoglobin 13.4 g/dL (13.5-17.5); IMMATURE GRAN ABSOLUTE AUTO 0.03 K/mm3 (0.00-0.10); IMMATURE GRAN PERCENT AUTO 0 % (0-1); LYMPHOCYTES ABSOLUTE AUTO 1.47 K/mm3 (0.84-5.20); LYMPHOCYTES PERCENT AUTO 20 % (21-46); MONOCYTES ABSOLUTE AUTO 0.68 K/mm3 (0.16-1.47); MONOCYTES PERCENT AUTO 9 % (4-13); Mean Corpuscular HGB 29.2 pg (26.0-34.0); Mean Corpuscular HGB Conc 33.6 g/dL (31.5-36.5); Mean Corpuscular Volume 87 fL (80-100); Mean Platelet Volume 10.4 fL (9.1-12.4); NEUTROPHILS ABSOLUTE AUTO 4.66 K/mm3 (1.96-9.15); NEUTROPHILS PERCENT AUTO 62 % (41-73); Platelet Count 227 K/mm3 (150-400); RDW Coefficient Variation 13.5 % (11.7-14.2); RDW Standard Deviation 43.2 fL (35.1-46.3); Red Blood Cell Count 4.59 M/mm3 (4.30-5.90); White Blood Cell Count 7.47 K/mm3 (4.00-11.30)
[2018-09-14 06:24] LABS: Calcium, Blood 8.4 mg/dL (8.5-10.1); Creatinine, Blood 1.81 mg/dL (0.60-1.20); Potassium, Blood 3.8 mmol/L (3.5-5.5)
--- NOTE | 2018-09-14 06:26 | NUR ---
PT WITH CHRONIC NONHEALING RT FOOT WOUND ON [facility] AND [facility] HAS NEW LT 4TH TOE DIABETIC ULCER CULTURES ON September GREW OUT ORGANISM. ON ANCEF q 8 HOURS. 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 HAS ONLY 1 TOE RT FOOT AND 3 TOES ON LT. NO GREAT TOES. PT AGGITATED WHEN DISCUSSING PODIETRY CONSULT. MEDICAL SAFETY DIRECTOR INFORMED. ENCOURAGED PT TO DISCUSS CONCERN WITH MD TO SEE IF OTHER CONSULT AVAILABLE. VOIDS LARGEAMTS OF CLER URINE. DENIES ACUTE PAIN
--- NOTE | 2018-09-14 19:06 | NUR ---
DR WATTERS, ELECTRICAL MAINTENANCE TECHNICIAN, AT BEDSIDE. PT IS REFUSING CARE FROM DR WATTERS. NO OTHER PODIATIST AVAILABLE UNTIL TUESDAY PER DR WATTERS. DR MCCARTNEY AWARE.
--- NOTE | 2018-09-14 19:10 | NUR ---
NO ACUTE CHANGES NOTED THIS SHIFT, WILL CONTINUE TO MONITOR AND REPORT TO ONCOMING RN
--- NOTE | 2018-09-15 07:21 | NUR ---
a+o, blind, cooperative, abx infusing with no s/sx of infiltration or infection, room air, call light in reach, walking rounds completed with day shift
--- NOTE | 2018-09-15 11:54 | NUR ---
BOTH WOUNDS TO BILATERAL FEET CLEANED WITH SKINTEGRITY THEN ANTIBIOTIC ONITMENT AND BANDAID TO RT FOOT WITH ANTIBIOTIC OINTMENT AND NONADHERING DRESSING AND KERLIX TO LEFT. NEW PICS TAKEN. TOLERATED WELL.
--- NOTE | 2018-09-15 18:05 | NUR ---
ALERT. ORIENTED. LEGALLY BLIND. DENIES PAIN TO FEET. PATIENT AWARE PODIATRY MAY NOT BE AVAILABLE TILL TUESDAY. IV PATENT FOR ANTIBIOTICS. TOLERATED SHOWER. UNLABORED RESPIRATIONS. COOPERATIVE. ABLE TO MAKE NEEDS KNOWN. BED IN LOW POSITION. [facility].
--- NOTE | 2018-09-16 05:46 | NUR ---
SHIFT SUMMARY NO ACUTE CHANGES THIS SHIFT. PT HAS SLEPT SOUNDLY T/O NIGHT. AOX4. VSS. DENIES DYSPNEA, N/V/D OR ANY PAIN IN FEET. REPORTS HE HAS CHRONIC N/T TO BLE. RLE HAS SMALL SORE ON BOTTOM OF FOOT, NO DRAINAGE NOTED & DRESSING C/D; LLE HAS SMALL SORE ON 4TH TOE, SCANT AMOUNT DRY CRUSTY DRAINAGE NOTED W/ASSESSMENT, BANDAGE PLACED & C/D/I. WAITING ON PODIATRY CONSULT FOR TUESDAY. CALL LIGHT IN REACH & I WILL CONTINUE TO MONITOR.
--- NOTE | 2018-09-16 17:58 | NUR ---
SUMMARY PT IS A/O X4, LEGALLY BLIND, SBA, IRRIGATOR ASSIST PT TO SHOWER TODAY. WOUND CARE, DRSG CHANGES PROVIDED TO ULCER BOTTOM R FOOT & ULCER ON L 4TH TOE, NO DRAINAGE. HE STATE NO PAIN BLE D/T HX NEUROPATHY. DR MCCARTNEY IN TO SEE HIM THIS AFTERNOON, CHANGE IV ANTIBX TO ROCEPHIN. BLOOD SUGARS @ X'S ELEVATED, DR ADJUST LANTUS DOSE. PT DECLINE TO SEE DR WATTERS (GAS PLANT SPECIALIST) FIR PERSONAL REASONS. DR MCCARTNEY WILL CONSULT ANOTHER GAS PLANT SPECIALIST TOMORROW. VSS.
--- NOTE | 2018-09-17 03:35 | NUR ---
SHIFT SUMMARY NO ACUTE CHANGES TO REPORT THIS SHIFT. PT HAS DENIED NEEDS AND HAS BEEN FREE OF PAIN FROM BILAT FOOT WOUNDS. DRGS REMAIN C/D/I. PT A/OX3, INDEPENDENT AT BEDSIDE WITH URINAL. FOUNDER CEO & PRESIDENT ATTEMPTED TO CALL PODIATRY CONSULT IN FOR PT, BUT DIRECTOR HAIR WAS UNABLE TO PROVIDE INFORMATION ABOUT WHO WAS BEAUTY SPECIALIST FOR TODAY, ONCE THAT INFORMATION IS MADE AVALIBLE SOMEONE WILL CONTACT THE DAY RN. SEE NURSE NOTIFY. RESTFUL NIGHT. BED IN LOWEST POSITION, CALL LIGHT WITHIN REACH. WILL CONTINUE TO MONITOR AND REPORT TO ONCOMING RN.
--- NOTE | 2018-09-17 16:40 | NUR ---
SUMMARY PT HAS STATED NO PAIN/DISCOMFORT T/O DAY. HX BLE NEUROPATHY. DR ISLAS PODIATRY IN TO SEE PT THIS AFTERNOON, ASSESS WOUNDS/ULCERS BILAT FEET. STATE NO SURG INTERVENTION @ THIS TIME. CONTINUE TO TX W ANTIBX & WOUNDCARE CLINIC & F/U WITH HIM AFTER D/C. WOUND CARE/DRSG CHANGE PROVIDED. SPOKE WITH PT CAREGIVER MICHEL TODAY, UPDATED. VSS.
--- NOTE | 2018-09-18 04:28 | NUR ---
SHIFT SUMMARY NO CHNAGES. PT HAS RESTED WELL THIS SHIFT. PT PLESANT AND COOPERATIVE WITH CARE. DENIES PAIN. DRGS INTACT TO BOTH FEET. PT INDEPENDENT IN THE ROOM. NO FRESH COMPLAINTS. PLAN IS TO FOLLOW UP WITH PODIATRY OUTPT. DIRECTOR REVENUE TO CONSULT PT TODAY. WILL CONTINUE TO MONITOR AND REPORT TO ONCOMING RN.
--- NOTE | 2018-09-18 11:55 | NUR ---
PATIENT DISCHARGED HOME WITH FRIEND AL. INFORMED CAREGIVER OF APPOINTMENT TIME WITH DR. ISLAS. LORAINE PEÑA. NO ACUTE ISSUES NOTED.
== END 2018-09-18 11:44 | disposition home or self-care (01) | DRG 872 ==
LOC: ER 12:11 → MEDS 16:15 → ENPENDDIS 09-18 10:30 → MEDS 09-18 11:44
PROVIDERS: Physician Assistant; ADMIT Family Medicine
DX: A41.9 Sepsis, unspecified organism (principal); I50.32 Chronic diastolic (congestive) heart failure; I13.0 Hypertensive heart and chronic kidney disease with heart failure and stage 1 through stage 4 chronic kidney disease, or unspecified chronic kidney disease; E87.1 Hypo-osmolality and hyponatremia; E11.22 Type 2 diabetes mellitus with diabetic chronic kidney disease; N18.3 Chronic kidney disease, stage 3 (moderate); E11.51 Type 2 diabetes mellitus with diabetic peripheral angiopathy without gangrene; H54.8 Legal blindness, as defined in USA; E11.621 Type 2 diabetes mellitus with foot ulcer; L97.529 Non-pressure chronic ulcer of other part of left foot with unspecified severity; B96.4 Proteus (mirabilis) (morganii) as the cause of diseases classified elsewhere; I25.10 Atherosclerotic heart disease of native coronary artery without angina pectoris; K21.9 Gastro-esophageal reflux disease without esophagitis; Z86.73 Personal history of transient ischemic attack (TIA), and cerebral infarction without residual deficits; Z95.1 Presence of aortocoronary bypass graft; Z79.82 Long term (current) use of aspirin; Z79.4 Long term (current) use of insulin; Z79.899 Other long term (current) drug therapy
CPT/HCPCS: 36415; 73630; 73660; 80048; 80053; 82947; 83605; 85025; 85651; 86140; 87040; 87070; 87075; 87077; 87186; 87205; 96365; 96375; 99285-25; G0463; J0690; J0696; J1650; J1815; J3010; J7040

== ENCOUNTER 2018-09-20 10:15 | Day surgery (SDC) | payer OTHER | END 2018-09-20 23:01 | disposition home or self-care (01) | LOC: WOUND 10:15 | DX: E11.621 Type 2 diabetes mellitus with foot ulcer (principal); L97.526 Non-pressure chronic ulcer of other part of left foot with bone involvement without evidence of necrosis; L97.512 Non-pressure chronic ulcer of other part of right foot with fat layer exposed; I13.0 Hypertensive heart and chronic kidney disease with heart failure and stage 1 through stage 4 chronic kidney disease, or unspecified chronic kidney disease; E11.22 Type 2 diabetes mellitus with diabetic chronic kidney disease; N18.3 Chronic kidney disease, stage 3 (moderate); I50.9 Heart failure, unspecified; E11.40 Type 2 diabetes mellitus with diabetic neuropathy, unspecified; E11.51 Type 2 diabetes mellitus with diabetic peripheral angiopathy without gangrene; I73.9 Peripheral vascular disease, unspecified; I87.2 Venous insufficiency (chronic) (peripheral); I25.10 Atherosclerotic heart disease of native coronary artery without angina pectoris; I25.2 Old myocardial infarction; F03.90 Unspecified dementia, unspecified severity, without behavioral disturbance, psychotic disturbance, mood disturbance, and anxiety; G47.30 Sleep apnea, unspecified; Z89.421 Acquired absence of other right toe(s) | CPT/HCPCS: G0463 ==

== ENCOUNTER 2018-09-27 00:29 | Day surgery (SDC) | payer OTHER | END 2018-09-27 22:50 | disposition home or self-care (01) | LOC: WOUND 00:29 | DX: E11.621 Type 2 diabetes mellitus with foot ulcer (principal); L97.512 Non-pressure chronic ulcer of other part of right foot with fat layer exposed; L97.526 Non-pressure chronic ulcer of other part of left foot with bone involvement without evidence of necrosis; E11.22 Type 2 diabetes mellitus with diabetic chronic kidney disease; N18.3 Chronic kidney disease, stage 3 (moderate); E11.40 Type 2 diabetes mellitus with diabetic neuropathy, unspecified; E11.51 Type 2 diabetes mellitus with diabetic peripheral angiopathy without gangrene; I87.2 Venous insufficiency (chronic) (peripheral); Z89.421 Acquired absence of other right toe(s) | CPT/HCPCS: G0463 ==

== ENCOUNTER 2018-10-04 00:51 | Day surgery (SDC) | payer OTHER | END 2018-10-04 22:51 | disposition home or self-care (01) | LOC: WOUND 00:51 | DX: E11.621 Type 2 diabetes mellitus with foot ulcer (principal); L97.419 Non-pressure chronic ulcer of right heel and midfoot with unspecified severity; E11.65 Type 2 diabetes mellitus with hyperglycemia; N18.3 Chronic kidney disease, stage 3 (moderate); E11.40 Type 2 diabetes mellitus with diabetic neuropathy, unspecified; I87.2 Venous insufficiency (chronic) (peripheral); E11.51 Type 2 diabetes mellitus with diabetic peripheral angiopathy without gangrene; Z89.421 Acquired absence of other right toe(s); Z89.411 Acquired absence of right great toe | CPT/HCPCS: G0463 ==

== ENCOUNTER 2018-10-11 00:22 | Day surgery (SDC) | payer OTHER | END 2018-10-11 22:39 | disposition home or self-care (01) | LOC: WOUND 00:22 | DX: E11.621 Type 2 diabetes mellitus with foot ulcer (principal); L97.529 Non-pressure chronic ulcer of other part of left foot with unspecified severity; E11.22 Type 2 diabetes mellitus with diabetic chronic kidney disease; N18.3 Chronic kidney disease, stage 3 (moderate); E11.40 Type 2 diabetes mellitus with diabetic neuropathy, unspecified; E11.51 Type 2 diabetes mellitus with diabetic peripheral angiopathy without gangrene; I87.2 Venous insufficiency (chronic) (peripheral); Z89.421 Acquired absence of other right toe(s); Z89.419 Acquired absence of unspecified great toe | CPT/HCPCS: G0463 ==

== ENCOUNTER 2018-10-18 00:29 | Day surgery (SDC) | payer OTHER | END 2018-10-18 22:48 | disposition home or self-care (01) | LOC: WOUND 00:29 | DX: E11.621 Type 2 diabetes mellitus with foot ulcer (principal); L97.511 Non-pressure chronic ulcer of other part of right foot limited to breakdown of skin; L97.522 Non-pressure chronic ulcer of other part of left foot with fat layer exposed; E11.51 Type 2 diabetes mellitus with diabetic peripheral angiopathy without gangrene; E11.22 Type 2 diabetes mellitus with diabetic chronic kidney disease; N18.3 Chronic kidney disease, stage 3 (moderate); I87.2 Venous insufficiency (chronic) (peripheral); E11.40 Type 2 diabetes mellitus with diabetic neuropathy, unspecified; Z89.421 Acquired absence of other right toe(s); Z89.419 Acquired absence of unspecified great toe | CPT/HCPCS: 87071; 87075; 87205 ==

== ENCOUNTER 2018-10-25 00:22 | Day surgery (SDC) | payer OTHER | END 2018-10-25 23:22 | disposition home or self-care (01) | LOC: WOUND 00:22 | DX: E11.621 Type 2 diabetes mellitus with foot ulcer (principal); L97.521 Non-pressure chronic ulcer of other part of left foot limited to breakdown of skin; L97.518 Non-pressure chronic ulcer of other part of right foot with other specified severity; E11.22 Type 2 diabetes mellitus with diabetic chronic kidney disease; N18.3 Chronic kidney disease, stage 3 (moderate); E11.40 Type 2 diabetes mellitus with diabetic neuropathy, unspecified; I87.2 Venous insufficiency (chronic) (peripheral); Z89.421 Acquired absence of other right toe(s); Z89.419 Acquired absence of unspecified great toe ==

== ENCOUNTER 2018-11-01 00:24 | Day surgery (SDC) | payer OTHER | END 2018-11-01 22:59 | disposition home or self-care (01) | LOC: WOUND 00:24 | DX: E11.621 Type 2 diabetes mellitus with foot ulcer (principal); L97.511 Non-pressure chronic ulcer of other part of right foot limited to breakdown of skin; L97.521 Non-pressure chronic ulcer of other part of left foot limited to breakdown of skin; E11.22 Type 2 diabetes mellitus with diabetic chronic kidney disease; N18.3 Chronic kidney disease, stage 3 (moderate); E11.40 Type 2 diabetes mellitus with diabetic neuropathy, unspecified; I87.2 Venous insufficiency (chronic) (peripheral); Z89.421 Acquired absence of other right toe(s); Z89.419 Acquired absence of unspecified great toe ==

== ENCOUNTER 2018-11-08 00:13 | Day surgery (SDC) | payer OTHER | END 2018-11-08 22:42 | disposition home or self-care (01) | LOC: WOUND 00:13 | DX: E11.621 Type 2 diabetes mellitus with foot ulcer (principal); L97.511 Non-pressure chronic ulcer of other part of right foot limited to breakdown of skin; L97.521 Non-pressure chronic ulcer of other part of left foot limited to breakdown of skin; E11.22 Type 2 diabetes mellitus with diabetic chronic kidney disease; N18.3 Chronic kidney disease, stage 3 (moderate); E11.40 Type 2 diabetes mellitus with diabetic neuropathy, unspecified; I87.2 Venous insufficiency (chronic) (peripheral); Z89.421 Acquired absence of other right toe(s); Z89.419 Acquired absence of unspecified great toe ==

== ENCOUNTER 2018-11-15 00:30 | Day surgery (SDC) | payer OTHER | END 2018-11-15 22:45 | disposition home or self-care (01) | LOC: WOUND 00:30 | DX: E11.621 Type 2 diabetes mellitus with foot ulcer (principal); L97.511 Non-pressure chronic ulcer of other part of right foot limited to breakdown of skin; L97.522 Non-pressure chronic ulcer of other part of left foot with fat layer exposed; I12.9 Hypertensive chronic kidney disease with stage 1 through stage 4 chronic kidney disease, or unspecified chronic kidney disease; E11.22 Type 2 diabetes mellitus with diabetic chronic kidney disease; N18.3 Chronic kidney disease, stage 3 (moderate); E11.40 Type 2 diabetes mellitus with diabetic neuropathy, unspecified; I87.2 Venous insufficiency (chronic) (peripheral); Z89.421 Acquired absence of other right toe(s); Z89.412 Acquired absence of left great toe ==

== ENCOUNTER 2018-11-22 10:27 | Day surgery (SDC) | payer OTHER | END 2018-11-22 23:09 | disposition home or self-care (01) | LOC: WOUND 10:27 | DX: E11.621 Type 2 diabetes mellitus with foot ulcer (principal); L97.511 Non-pressure chronic ulcer of other part of right foot limited to breakdown of skin; I13.0 Hypertensive heart and chronic kidney disease with heart failure and stage 1 through stage 4 chronic kidney disease, or unspecified chronic kidney disease; E11.22 Type 2 diabetes mellitus with diabetic chronic kidney disease; N18.3 Chronic kidney disease, stage 3 (moderate); I50.9 Heart failure, unspecified; E11.40 Type 2 diabetes mellitus with diabetic neuropathy, unspecified; I25.10 Atherosclerotic heart disease of native coronary artery without angina pectoris; I87.2 Venous insufficiency (chronic) (peripheral); Z89.411 Acquired absence of right great toe; Z89.421 Acquired absence of other right toe(s) | CPT/HCPCS: 87071; 87077; 87102; 87186; 87205 ==

== ENCOUNTER 2018-11-29 10:19 | Day surgery (SDC) | payer OTHER | END 2018-11-29 22:53 | disposition home or self-care (01) | LOC: WOUND 10:19 | DX: E11.621 Type 2 diabetes mellitus with foot ulcer (principal); L97.511 Non-pressure chronic ulcer of other part of right foot limited to breakdown of skin; I87.2 Venous insufficiency (chronic) (peripheral); E11.40 Type 2 diabetes mellitus with diabetic neuropathy, unspecified; E11.51 Type 2 diabetes mellitus with diabetic peripheral angiopathy without gangrene; I73.9 Peripheral vascular disease, unspecified; I13.0 Hypertensive heart and chronic kidney disease with heart failure and stage 1 through stage 4 chronic kidney disease, or unspecified chronic kidney disease; E11.22 Type 2 diabetes mellitus with diabetic chronic kidney disease; N18.3 Chronic kidney disease, stage 3 (moderate); I50.9 Heart failure, unspecified; I25.10 Atherosclerotic heart disease of native coronary artery without angina pectoris; Z89.411 Acquired absence of right great toe; Z89.421 Acquired absence of other right toe(s) ==

== ENCOUNTER 2018-12-06 00:18 | Day surgery (SDC) | payer OTHER | END 2018-12-06 22:58 | disposition home or self-care (01) | LOC: WOUND 00:18 | DX: E11.621 Type 2 diabetes mellitus with foot ulcer (principal); L97.511 Non-pressure chronic ulcer of other part of right foot limited to breakdown of skin; L97.522 Non-pressure chronic ulcer of other part of left foot with fat layer exposed; E11.22 Type 2 diabetes mellitus with diabetic chronic kidney disease; N18.3 Chronic kidney disease, stage 3 (moderate); E11.40 Type 2 diabetes mellitus with diabetic neuropathy, unspecified; Z89.421 Acquired absence of other right toe(s); Z89.419 Acquired absence of unspecified great toe ==

== ENCOUNTER 2018-12-13 00:17 | Day surgery (SDC) | payer OTHER | END 2018-12-13 23:16 | disposition home or self-care (01) | LOC: WOUND 00:17 | DX: E11.621 Type 2 diabetes mellitus with foot ulcer (principal); L97.511 Non-pressure chronic ulcer of other part of right foot limited to breakdown of skin; I13.0 Hypertensive heart and chronic kidney disease with heart failure and stage 1 through stage 4 chronic kidney disease, or unspecified chronic kidney disease; E11.22 Type 2 diabetes mellitus with diabetic chronic kidney disease; N18.3 Chronic kidney disease, stage 3 (moderate); I50.9 Heart failure, unspecified; E11.40 Type 2 diabetes mellitus with diabetic neuropathy, unspecified; I25.10 Atherosclerotic heart disease of native coronary artery without angina pectoris; I87.2 Venous insufficiency (chronic) (peripheral); Z89.421 Acquired absence of other right toe(s); Z89.411 Acquired absence of right great toe ==

== ENCOUNTER 2018-12-20 00:42 | Day surgery (SDC) | payer OTHER | END 2018-12-20 22:56 | disposition home or self-care (01) | LOC: WOUND 00:42 | DX: E11.621 Type 2 diabetes mellitus with foot ulcer (principal); L97.518 Non-pressure chronic ulcer of other part of right foot with other specified severity; E11.40 Type 2 diabetes mellitus with diabetic neuropathy, unspecified; I13.0 Hypertensive heart and chronic kidney disease with heart failure and stage 1 through stage 4 chronic kidney disease, or unspecified chronic kidney disease; E11.22 Type 2 diabetes mellitus with diabetic chronic kidney disease; N18.3 Chronic kidney disease, stage 3 (moderate); I50.9 Heart failure, unspecified; I87.2 Venous insufficiency (chronic) (peripheral); Z89.421 Acquired absence of other right toe(s); Z89.411 Acquired absence of right great toe | CPT/HCPCS: G0463 ==

== ENCOUNTER 2019-01-03 00:20 | Day surgery (SDC) | payer OTHER | END 2019-01-03 23:04 | disposition home or self-care (01) | LOC: WOUND 00:20 | DX: E11.621 Type 2 diabetes mellitus with foot ulcer (principal); L97.512 Non-pressure chronic ulcer of other part of right foot with fat layer exposed; E11.22 Type 2 diabetes mellitus with diabetic chronic kidney disease; N18.3 Chronic kidney disease, stage 3 (moderate); E11.40 Type 2 diabetes mellitus with diabetic neuropathy, unspecified; I87.2 Venous insufficiency (chronic) (peripheral); Z89.421 Acquired absence of other right toe(s); Z89.411 Acquired absence of right great toe | CPT/HCPCS: Q4186 ==

== ENCOUNTER 2019-01-10 09:22 | Day surgery (SDC) | payer OTHER | END 2019-01-10 22:45 | disposition home or self-care (01) | LOC: WOUND 09:22 | DX: E11.621 Type 2 diabetes mellitus with foot ulcer (principal); L97.518 Non-pressure chronic ulcer of other part of right foot with other specified severity; E11.22 Type 2 diabetes mellitus with diabetic chronic kidney disease; E11.40 Type 2 diabetes mellitus with diabetic neuropathy, unspecified; N18.3 Chronic kidney disease, stage 3 (moderate); I87.2 Venous insufficiency (chronic) (peripheral); Z89.421 Acquired absence of other right toe(s); Z89.419 Acquired absence of unspecified great toe; Z79.899 Other long term (current) drug therapy; Z79.4 Long term (current) use of insulin | CPT/HCPCS: Q4186 ==

== ENCOUNTER 2019-01-17 00:21 | Day surgery (SDC) | payer OTHER | END 2019-01-17 23:03 | disposition home or self-care (01) | LOC: WOUND 00:21 | DX: E11.621 Type 2 diabetes mellitus with foot ulcer (principal); L97.512 Non-pressure chronic ulcer of other part of right foot with fat layer exposed; E11.40 Type 2 diabetes mellitus with diabetic neuropathy, unspecified; I13.0 Hypertensive heart and chronic kidney disease with heart failure and stage 1 through stage 4 chronic kidney disease, or unspecified chronic kidney disease; E11.22 Type 2 diabetes mellitus with diabetic chronic kidney disease; N18.3 Chronic kidney disease, stage 3 (moderate); I50.9 Heart failure, unspecified; I87.2 Venous insufficiency (chronic) (peripheral); Z89.421 Acquired absence of other right toe(s); Z89.411 Acquired absence of right great toe | CPT/HCPCS: Q4186 ==

== ENCOUNTER 2019-01-24 00:13 | Day surgery (SDC) | payer OTHER | END 2019-01-24 22:57 | disposition home or self-care (01) | LOC: WOUND 00:13 | DX: E11.621 Type 2 diabetes mellitus with foot ulcer (principal); L97.511 Non-pressure chronic ulcer of other part of right foot limited to breakdown of skin; E11.40 Type 2 diabetes mellitus with diabetic neuropathy, unspecified; E11.69 Type 2 diabetes mellitus with other specified complication; M86.8X8 Other osteomyelitis, other site; E11.36 Type 2 diabetes mellitus with diabetic cataract; I87.2 Venous insufficiency (chronic) (peripheral); H26.9 Unspecified cataract; E11.39 Type 2 diabetes mellitus with other diabetic ophthalmic complication; H40.9 Unspecified glaucoma; H42 Glaucoma in diseases classified elsewhere; G47.30 Sleep apnea, unspecified; I13.0 Hypertensive heart and chronic kidney disease with heart failure and stage 1 through stage 4 chronic kidney disease, or unspecified chronic kidney disease; E11.22 Type 2 diabetes mellitus with diabetic chronic kidney disease; N18.3 Chronic kidney disease, stage 3 (moderate); I50.9 Heart failure, unspecified; I25.2 Old myocardial infarction; I25.10 Atherosclerotic heart disease of native coronary artery without angina pectoris; M10.9 Gout, unspecified; F03.90 Unspecified dementia, unspecified severity, without behavioral disturbance, psychotic disturbance, mood disturbance, and anxiety; E07.9 Disorder of thyroid, unspecified; M06.9 Rheumatoid arthritis, unspecified; Z89.421 Acquired absence of other right toe(s); Z79.02 Long term (current) use of antithrombotics/antiplatelets; Z79.4 Long term (current) use of insulin; Z79.82 Long term (current) use of aspirin; Z79.899 Other long term (current) drug therapy | CPT/HCPCS: Q4186 ==

== ENCOUNTER 2019-01-31 00:22 | Day surgery (SDC) | payer OTHER | END 2019-01-31 22:39 | disposition home or self-care (01) | LOC: WOUND 00:22 | DX: E11.621 Type 2 diabetes mellitus with foot ulcer (principal); L97.518 Non-pressure chronic ulcer of other part of right foot with other specified severity; E11.22 Type 2 diabetes mellitus with diabetic chronic kidney disease; E11.40 Type 2 diabetes mellitus with diabetic neuropathy, unspecified; I87.2 Venous insufficiency (chronic) (peripheral); Z89.421 Acquired absence of other right toe(s); Z89.411 Acquired absence of right great toe; Z79.02 Long term (current) use of antithrombotics/antiplatelets; Z79.4 Long term (current) use of insulin; Z79.899 Other long term (current) drug therapy | CPT/HCPCS: Q4186 ==

== ENCOUNTER 2019-02-07 00:18 | Day surgery (SDC) | payer OTHER | END 2019-02-07 22:45 | disposition home or self-care (01) | LOC: WOUND 00:18 | DX: E11.621 Type 2 diabetes mellitus with foot ulcer (principal); L97.518 Non-pressure chronic ulcer of other part of right foot with other specified severity; E11.22 Type 2 diabetes mellitus with diabetic chronic kidney disease; I87.2 Venous insufficiency (chronic) (peripheral); N18.3 Chronic kidney disease, stage 3 (moderate); Z89.421 Acquired absence of other right toe(s); Z89.419 Acquired absence of unspecified great toe; Z79.899 Other long term (current) drug therapy; Z79.4 Long term (current) use of insulin | CPT/HCPCS: G0463 ==

== ENCOUNTER 2019-02-14 09:30 | Day surgery (SDC) | payer OTHER | END 2019-02-14 23:11 | disposition home or self-care (01) | LOC: WOUND 09:30 | DX: E11.621 Type 2 diabetes mellitus with foot ulcer (principal); L97.519 Non-pressure chronic ulcer of other part of right foot with unspecified severity; E11.52 Type 2 diabetes mellitus with diabetic peripheral angiopathy with gangrene; I96 Gangrene, not elsewhere classified; I13.0 Hypertensive heart and chronic kidney disease with heart failure and stage 1 through stage 4 chronic kidney disease, or unspecified chronic kidney disease; E11.22 Type 2 diabetes mellitus with diabetic chronic kidney disease; N18.3 Chronic kidney disease, stage 3 (moderate); I50.9 Heart failure, unspecified; E11.40 Type 2 diabetes mellitus with diabetic neuropathy, unspecified; I87.2 Venous insufficiency (chronic) (peripheral); E11.36 Type 2 diabetes mellitus with diabetic cataract; H26.9 Unspecified cataract; H40.9 Unspecified glaucoma; I25.10 Atherosclerotic heart disease of native coronary artery without angina pectoris; I25.2 Old myocardial infarction; M10.9 Gout, unspecified; M06.9 Rheumatoid arthritis, unspecified; F03.90 Unspecified dementia, unspecified severity, without behavioral disturbance, psychotic disturbance, mood disturbance, and anxiety; E07.9 Disorder of thyroid, unspecified; M19.90 Unspecified osteoarthritis, unspecified site; Z89.419 Acquired absence of unspecified great toe | CPT/HCPCS: 87071; 87075; 87076; 87077; 87205 ==

== ENCOUNTER 2019-02-21 09:12 | Day surgery (SDC) | payer OTHER | END 2019-02-21 23:57 | disposition home or self-care (01) | LOC: WOUND 09:12 | DX: E11.621 Type 2 diabetes mellitus with foot ulcer (principal); L97.518 Non-pressure chronic ulcer of other part of right foot with other specified severity; E11.22 Type 2 diabetes mellitus with diabetic chronic kidney disease; E11.40 Type 2 diabetes mellitus with diabetic neuropathy, unspecified; N18.3 Chronic kidney disease, stage 3 (moderate); I87.2 Venous insufficiency (chronic) (peripheral); Z89.421 Acquired absence of other right toe(s); Z89.419 Acquired absence of unspecified great toe; Z79.899 Other long term (current) drug therapy; Z79.4 Long term (current) use of insulin ==

== ENCOUNTER 2019-02-28 09:30 | Day surgery (SDC) | payer OTHER | END 2019-02-28 22:49 | disposition home or self-care (01) | LOC: WOUND 09:30 | DX: E11.621 Type 2 diabetes mellitus with foot ulcer (principal); L97.512 Non-pressure chronic ulcer of other part of right foot with fat layer exposed; E11.52 Type 2 diabetes mellitus with diabetic peripheral angiopathy with gangrene; I96 Gangrene, not elsewhere classified; E11.40 Type 2 diabetes mellitus with diabetic neuropathy, unspecified; I13.0 Hypertensive heart and chronic kidney disease with heart failure and stage 1 through stage 4 chronic kidney disease, or unspecified chronic kidney disease; E11.22 Type 2 diabetes mellitus with diabetic chronic kidney disease; N18.3 Chronic kidney disease, stage 3 (moderate); I50.9 Heart failure, unspecified; I87.1 Compression of vein; E11.36 Type 2 diabetes mellitus with diabetic cataract; H26.9 Unspecified cataract; E11.39 Type 2 diabetes mellitus with other diabetic ophthalmic complication; H40.9 Unspecified glaucoma; H42 Glaucoma in diseases classified elsewhere; G47.30 Sleep apnea, unspecified; I25.10 Atherosclerotic heart disease of native coronary artery without angina pectoris; I25.2 Old myocardial infarction; E07.9 Disorder of thyroid, unspecified; M10.9 Gout, unspecified; M06.9 Rheumatoid arthritis, unspecified; E11.69 Type 2 diabetes mellitus with other specified complication; M86.9 Osteomyelitis, unspecified; F03.90 Unspecified dementia, unspecified severity, without behavioral disturbance, psychotic disturbance, mood disturbance, and anxiety; Z89.421 Acquired absence of other right toe(s); Z89.419 Acquired absence of unspecified great toe; Z79.02 Long term (current) use of antithrombotics/antiplatelets; Z79.4 Long term (current) use of insulin; Z79.82 Long term (current) use of aspirin; Z79.899 Other long term (current) drug therapy ==

== ENCOUNTER 2019-03-16 01:45 | Day surgery (SDC) | payer OTHER | END 2019-03-16 23:27 | disposition home or self-care (01) | LOC: WOUND 01:45 | DX: E11.621 Type 2 diabetes mellitus with foot ulcer (principal); L97.512 Non-pressure chronic ulcer of other part of right foot with fat layer exposed; E11.52 Type 2 diabetes mellitus with diabetic peripheral angiopathy with gangrene; I96 Gangrene, not elsewhere classified; I13.0 Hypertensive heart and chronic kidney disease with heart failure and stage 1 through stage 4 chronic kidney disease, or unspecified chronic kidney disease; E11.22 Type 2 diabetes mellitus with diabetic chronic kidney disease; N18.3 Chronic kidney disease, stage 3 (moderate); I50.9 Heart failure, unspecified; E11.40 Type 2 diabetes mellitus with diabetic neuropathy, unspecified; I87.2 Venous insufficiency (chronic) (peripheral); E11.36 Type 2 diabetes mellitus with diabetic cataract; H26.9 Unspecified cataract; E11.39 Type 2 diabetes mellitus with other diabetic ophthalmic complication; H40.9 Unspecified glaucoma; H42 Glaucoma in diseases classified elsewhere; G47.30 Sleep apnea, unspecified; I25.10 Atherosclerotic heart disease of native coronary artery without angina pectoris; I25.2 Old myocardial infarction; M10.9 Gout, unspecified; E07.9 Disorder of thyroid, unspecified; M06.9 Rheumatoid arthritis, unspecified; F03.90 Unspecified dementia, unspecified severity, without behavioral disturbance, psychotic disturbance, mood disturbance, and anxiety; Z89.421 Acquired absence of other right toe(s); Z89.419 Acquired absence of unspecified great toe; Z79.4 Long term (current) use of insulin; Z79.02 Long term (current) use of antithrombotics/antiplatelets; Z79.82 Long term (current) use of aspirin; Z79.899 Other long term (current) drug therapy ==

== ENCOUNTER → 2019-03-27 | Outpatient (CLI) | payer OTHER ==
[2019-03-27 14:17] LABS: Microalb/Creat Ratio UR, Rand 27.123 mg/g (0.000-30.000); Microalbumin, Random Urine 19.8 mg/L (0.000-20.000)
== END ==
LOC: LAB SHORT 11:09 → EDSTATUS 11:09 → LAB 11:09
PROVIDERS: Family Medicine
DX: E11.49 Type 2 diabetes mellitus with other diabetic neurological complication (principal)
CPT/HCPCS: 82043; 82570

== ENCOUNTER 2019-03-28 00:30 | Day surgery (SDC) | payer OTHER | END 2019-03-28 22:47 | disposition home or self-care (01) | LOC: WOUND 00:30 | DX: E11.621 Type 2 diabetes mellitus with foot ulcer (principal); L97.512 Non-pressure chronic ulcer of other part of right foot with fat layer exposed; E11.22 Type 2 diabetes mellitus with diabetic chronic kidney disease; N18.3 Chronic kidney disease, stage 3 (moderate); E11.40 Type 2 diabetes mellitus with diabetic neuropathy, unspecified; I87.2 Venous insufficiency (chronic) (peripheral); Z89.421 Acquired absence of other right toe(s); Z79.899 Other long term (current) drug therapy; Z79.4 Long term (current) use of insulin ==

== ENCOUNTER 2019-04-11 00:15 | Day surgery (SDC) | payer OTHER | END 2019-04-11 22:56 | disposition home or self-care (01) | LOC: WOUND 00:15 | DX: E11.621 Type 2 diabetes mellitus with foot ulcer (principal); L97.518 Non-pressure chronic ulcer of other part of right foot with other specified severity; E11.22 Type 2 diabetes mellitus with diabetic chronic kidney disease; E11.40 Type 2 diabetes mellitus with diabetic neuropathy, unspecified; I87.2 Venous insufficiency (chronic) (peripheral); N18.3 Chronic kidney disease, stage 3 (moderate); Z89.421 Acquired absence of other right toe(s); Z89.411 Acquired absence of right great toe; Z79.899 Other long term (current) drug therapy; Z79.4 Long term (current) use of insulin ==

== ENCOUNTER 2019-04-18 00:16 | Day surgery (SDC) | payer OTHER | END 2019-04-18 23:09 | disposition home or self-care (01) | LOC: WOUND | DX: E11.621 Type 2 diabetes mellitus with foot ulcer (principal); L97.518 Non-pressure chronic ulcer of other part of right foot with other specified severity; E11.22 Type 2 diabetes mellitus with diabetic chronic kidney disease; E11.40 Type 2 diabetes mellitus with diabetic neuropathy, unspecified; I87.2 Venous insufficiency (chronic) (peripheral); N18.3 Chronic kidney disease, stage 3 (moderate); Z89.421 Acquired absence of other right toe(s); Z89.411 Acquired absence of right great toe; Z79.899 Other long term (current) drug therapy; Z79.02 Long term (current) use of antithrombotics/antiplatelets; Z79.4 Long term (current) use of insulin; Z79.82 Long term (current) use of aspirin ==

== ENCOUNTER 2019-04-25 00:14 | Day surgery (SDC) | payer OTHER | END 2019-04-25 22:57 | disposition home or self-care (01) | LOC: WOUND 00:14 | DX: E11.621 Type 2 diabetes mellitus with foot ulcer (principal); L97.518 Non-pressure chronic ulcer of other part of right foot with other specified severity; E11.40 Type 2 diabetes mellitus with diabetic neuropathy, unspecified; E11.22 Type 2 diabetes mellitus with diabetic chronic kidney disease; N18.3 Chronic kidney disease, stage 3 (moderate); I87.2 Venous insufficiency (chronic) (peripheral); Z89.421 Acquired absence of other right toe(s); Z89.411 Acquired absence of right great toe; Z79.899 Other long term (current) drug therapy; Z79.4 Long term (current) use of insulin ==

== ENCOUNTER 2019-05-09 00:29 | Day surgery (SDC) | payer OTHER | END 2019-05-09 22:52 | disposition home or self-care (01) | LOC: WOUND 00:29 | DX: E11.621 Type 2 diabetes mellitus with foot ulcer (principal); L97.518 Non-pressure chronic ulcer of other part of right foot with other specified severity; E11.22 Type 2 diabetes mellitus with diabetic chronic kidney disease; E11.40 Type 2 diabetes mellitus with diabetic neuropathy, unspecified; N18.3 Chronic kidney disease, stage 3 (moderate); I87.2 Venous insufficiency (chronic) (peripheral); Z89.421 Acquired absence of other right toe(s); Z89.411 Acquired absence of right great toe; Z79.899 Other long term (current) drug therapy; Z79.4 Long term (current) use of insulin ==

== ENCOUNTER 2019-05-12 07:54 | Inpatient (IN) | payer OTHER ==
[~2019-05-12] VITALS: Ht 172.7 cm; Wt 112.2 kg
[2019-05-12 08:17] LABS: BASOPHILS ABSOLUTE AUTO 0.05 K/mm3 (0.00-0.23); BASOPHILS PERCENT AUTO 0 % (0-2); EOSINOPHILS ABSOLUTE AUTO 0.53 K/mm3 (0.00-0.68); EOSINOPHILS PERCENT AUTO 5 % (0-6); Hematocrit 41.4 % (37.0-53.0); Hemoglobin 13.4 g/dL (13.5-17.5); IMMATURE GRAN ABSOLUTE AUTO 0.05 K/mm3 (0.00-0.10); IMMATURE GRAN PERCENT AUTO 0 % (0-1); LYMPHOCYTES ABSOLUTE AUTO 1.87 K/mm3 (0.84-5.20); LYMPHOCYTES PERCENT AUTO 17 % (21-46); MONOCYTES ABSOLUTE AUTO 0.72 K/mm3 (0.16-1.47); MONOCYTES PERCENT AUTO 6 % (4-13); Mean Corpuscular HGB 29.1 pg (26.0-34.0); Mean Corpuscular HGB Conc 32.4 g/dL (31.5-36.5); Mean Corpuscular Volume 90 fL (80-100); NEUTROPHILS ABSOLUTE AUTO 8.13 K/mm3 (1.96-9.15); NEUTROPHILS PERCENT AUTO 72 % (41-73); Platelet Count 237 K/mm3 (150-400); RDW Coefficient Variation 13.2 % (11.7-14.2); RDW Standard Deviation 43.5 fL (35.1-46.3); White Blood Cell Count 11.35 K/mm3 (4.00-11.30)
[2019-05-12] MEDS ORDERED: NOVOLOG100 UNIT/1 SC (08:19)
[2019-05-12] MEDS ORDERED: ERGO50000 PO (08:20)
[2019-05-12] MEDS ORDERED: Bumetanide2 MG PO (08:21)
[2019-05-12 08:35] LABS: International Normalized Ratio 0.98; Prothrombin Time Results 10.5 Sec (9.7-11.5)
[2019-05-12 08:44] LABS: Albumin, Blood 3.2 g/dL (3.4-5.0); Albumin/Globulin Ratio 0.8 (0.8-1.8); Bilirubin, Total 0.5 mg/dL (0.1-1.0); Bun/Creatinine Ratio 26.6 (12.0-20.0); Calcium, Blood 8.3 mg/dL (8.5-10.1); Creatinine, Blood 1.69 mg/dL (0.60-1.20); Globulin, Blood 4.1 g/dL (2.2-4.0); Potassium, Blood 3.8 mmol/L (3.5-5.5); Total Protein, Blood 7.3 g/dL (6.4-8.2)
--- NOTE | 2019-05-12 13:02 | NUR ---
PT ARRIVED TO UNIT AT APROX 1100 FROM ER VIA GURNEY. PT TRANSFERED USING SLIDER SHEET TO HOSPITAL BED. R LEG EXTERNALY ROTATED AND SHORTENED. PT C/O PAIN WITH TRANSFER BUT THEN APPEARS TO BE RESTING COMFORTABLY ONCE TRANSFERED AND SETTLED. ORTHO CONSULT CALLED TO DR OCHOA, PLAN IS FOR PT TO GO TO OR 05/13/19 @ 0900
[2019-05-13 06:04] LABS: BASOPHILS ABSOLUTE AUTO 0.02 K/mm3 (0.00-0.23); BASOPHILS PERCENT AUTO 0 % (0-2); EOSINOPHILS ABSOLUTE AUTO 0.24 K/mm3 (0.00-0.68); EOSINOPHILS PERCENT AUTO 2 % (0-6); Hematocrit 38.3 % (37.0-53.0); Hemoglobin 12.5 g/dL (13.5-17.5); IMMATURE GRAN ABSOLUTE AUTO 0.07 K/mm3 (0.00-0.10); IMMATURE GRAN PERCENT AUTO 1 % (0-1); LYMPHOCYTES ABSOLUTE AUTO 1.46 K/mm3 (0.84-5.20); LYMPHOCYTES PERCENT AUTO 10 % (21-46); MONOCYTES ABSOLUTE AUTO 1.06 K/mm3 (0.16-1.47); MONOCYTES PERCENT AUTO 7 % (4-13); Mean Corpuscular HGB 29.3 pg (26.0-34.0); Mean Corpuscular HGB Conc 32.6 g/dL (31.5-36.5); Mean Corpuscular Volume 90 fL (80-100); Mean Platelet Volume 10.3 fL (9.1-12.4); NEUTROPHILS ABSOLUTE AUTO 11.82 K/mm3 (1.96-9.15); NEUTROPHILS PERCENT AUTO 81 % (41-73); Platelet Count 224 K/mm3 (150-400); RDW Coefficient Variation 13.4 % (11.7-14.2); RDW Standard Deviation 43.9 fL (35.1-46.3); Red Blood Cell Count 4.27 M/mm3 (4.30-5.90); White Blood Cell Count 14.67 K/mm3 (4.00-11.30)
[2019-05-13 06:19] LABS: International Normalized Ratio 0.98; Prothrombin Time Results 10.5 Sec (9.7-11.5)
[2019-05-13 06:53] LABS: Albumin, Blood 3.1 g/dL (3.4-5.0); Albumin/Globulin Ratio 0.8 (0.8-1.8); Bilirubin, Total 0.7 mg/dL (0.1-1.0); Bun/Creatinine Ratio 26.2 (12.0-20.0); Calcium, Blood 8.7 mg/dL (8.5-10.1); Creatinine, Blood 1.6 mg/dL (0.60-1.20); Globulin, Blood 4.1 g/dL (2.2-4.0); Potassium, Blood 4.1 mmol/L (3.5-5.5); Total Protein, Blood 7.2 g/dL (6.4-8.2)
--- NOTE | 2019-05-13 07:05 | NUR ---
SHIFT SUMMARY PT RESTED INTERMITTENTLY T/O NIGHT. AAOX4. NPO THIS AM FOR PROCEDURE AT 0900. DISCOMFORT DECREASED WITH 50mcg FENTANYL Q6H. NO NAUSEA/EMESIS. RLE EXTERNALLY ROTATED + SHORTENED. PPP, DENIES N/T BLE, MOVES TOES WELL. X1 MODERATE LOOSE BM THIS SHIFT. GOOD URINE OUTPUT. PT KOTLIK/LEGALLY BLIND. CALL LIGHT IN REACH AT THIS TIME + PT DEMONSTRATES USE WHEN NEEDED.
--- NOTE | 2019-05-13 08:11 | NUR ---
DISCUSSED LANTUS ORDER WITH DR COCHRAN, SEE ORDERS.
--- NOTE | 2019-05-13 09:03 | NUR ---
PT TO OR IN OWN BED. PT RECENTLY CHANGED.
--- NOTE | 2019-05-13 12:15 | NUR ---
PT BACKT TO ROOM. PT HAS DRESSINGS C/D/I TO R HIP. PT ALERT. DENIES DIZZINESS LIGHTHEADEDNESS. SPEECH CLEAR.
--- NOTE | 2019-05-13 15:11 | NUR ---
PT BP LOW, PT ASSYMPTOMATIC. DR COCHRAN NOTIFIED. NO ACTIVE SIGNS OF BLEEDING. SEE ORDERS. DISCUSSED WITH PHARMACY.
--- NOTE | 2019-05-13 16:55 | NUR ---
SHIFT SUMMARY PT HAD PROCEDURE TODAY. PT EATING AND DRINKING WITHOUT DIFFICULTY. PT HAD LOW BP AFTER SURGERY, SEE VS AND ORDERS. NORMAL SALINE STARTED. PT WAS ASSYMPTOMATIC. CAREGIVERS IN ROOM VISITING WITH PT. PT VOIDED SMALL AMT SINCE SURGERY AND DOES NOT FEEL NEED TO VOID ANYMORE AT THIS TIME. PO INTAKE BEEN ENCOURAGED. DRESSING'S TO R HIP AREA REMAIN C/D/I.
--- NOTE | 2019-05-13 17:22 | NUR ---
DISCUSSED PT EATING APPROX 15:00 AND HAVING CBG NOW OF 425. REPORTS TO GIVE TONIGHT'S DOSE OF LANTUS NOW PLUS SLIDING SCALE.
--- NOTE | 2019-05-13 20:35 | NUR ---
PATIENT STATED TO USE RIGHT ARM FOR BLOOD PRESSURE.PATIENT STATED HE HAD BI PASS SURG AND LEFT ARM BLOOD PRSSURES ARE NOT ACCURATE.RN NOTIFIED MINI.BLOOD PRESSURE TAKEN IN SAME ARM NOC SHIFT IN RIGHT WRIST FROM 05/12/2019.BLOOD PRESSURE IS NOW 166/81 AND PULSE OF 93. RN NOTIFIED OF INFORMATION AND NEW BLOOD PRRSSURE.WILL PASS ON IN REPORT IN AM TO NEXT SHIFT.DOCUMENTION OF NO BLOOD PRESSURES IN LEFT ARM ON WHITE BOARD IN ROOM.
--- NOTE | 2019-05-14 04:48 | NUR ---
SHIFT SUMMARY POD 1 S/P RIGHT HIP GAMMA NAIL; DRESSING C/D/I WITH GOOD CIRC CHECK TO EXT. PT REFUSING TO MOBILIZE AT THIS TIME, PLAN FOR INCREASE MOBILITY WITH PT/OT TODAY. PAIN MANAGED WITH PO MEDICATION. TOLERATING REGULAR DIET, DENIES N/V. MAY NEED DISCHARGE PLANNING, HOME VS SNF. IS CURRENTLY RESTING IN BED WITH CALL LIGHT IN REACH. WILL CONT TO MONITOR AND GIVE REPORT TO ONCOMING RN.
[2019-05-14 09:10] LABS: Hematocrit 32.5 % (37.0-53.0); Hemoglobin 10.7 g/dL (13.5-17.5)
[2019-05-14 09:24] LABS: Bun/Creatinine Ratio 22.8 (12.0-20.0); Calcium, Blood 8.2 mg/dL (8.5-10.1); Creatinine, Blood 1.45 mg/dL (0.60-1.20); Potassium, Blood 4.1 mmol/L (3.5-5.5)
--- NOTE | 2019-05-14 19:16 | NUR ---
SUMMARY: PT IS POD1 R HIP RODDING. NO ACUTE CHANGE TODAY. VSS, PT A/O, TELE STABLE. PT ABLE TO WORK WITH THERAPY. PAIN SEEMS TO BE WELL MANAGED WITH 1 NARCO. NO SAFETY CONCERN AT THIS TIME. REPORT GIVEN TO ANITRA LINDSEY RN
--- NOTE | 2019-05-15 03:52 | NUR ---
ASSUMING CARE OF PATIENT AT THIS TIME. REPORT RECIEVED FROM BRITTNY AYOUB.
--- NOTE | 2019-05-15 10:42 | NUR ---
assumed care of patient at 0900 for Carey MART. pt voices concerns and upset about not returning home but going to rehab. GRAPHICS PROGRAMMER in at this time to assist with ADL's and bathing.
--- NOTE | 2019-05-15 16:32 | NUR ---
IV DC'D, CATH INTACT RT AC
--- NOTE | 2019-05-15 16:33 | NUR ---
PERMISSION FOR CARE I, JAXON ROBERSON, RECEIVED PERMISSION TO REMOVE PT'S IV FROM PT ON 05/15/2019.
--- NOTE | 2019-05-15 17:06 | NUR ---
AT ABOUT 1625 PREPARING PT FOR DISCHARGE TO [facility]. DRESSING CHANGED AT R FOOT AND MEDIPORE DRESSING PLACED AT R HIP WOUND SITE. IV SITE DC'D. PT MADE AWARE THAT TRANSPORT WILL ARRIVE AT 1700 IN ORDER TO TAKE PT TO [facility]. AT THIS TIME PT BECAME ANGRY AND REPORTS THAT "HE DOES NOT WANT TO GO AND WILL NOT GO" AND THAT STAFF IS " RAILROADING HIM OUT". PT HAS BEEN AWARE OF THE PLAN FOR DISCHARGE ALL DAY THE MACHINE STRAW HAT PRESSER BRAYAN TALKED TO PT ABOUT DISCHARGE THIS AM. SEE MACHINE STRAW HAT PRESSER NOTES. THIS RN EDUCATED ON THE IMPORTANCE OF REHAB FOR PT HIP TO HEAL AND SAFETY. PT REPORTS HE STILL "WILL NOT LEAVE AND WANTS TO STAY HERE OR GO HOME" TRANSPORT HERE AT 1550 TO [facility], THIS RN ATTEMPTED TO SPEAK TO PT AGAIN ABOUT DISCHARGE AND EDUCATED. PT AGAIN REFUSING. SOFIA, RN NOTIFIED AND ASKED TO SPEAK TO THE PT. SOFIA IN PT ROOM AT ABOUT 1700, SPEAKING WITH PT.IN THE MEANTIME, TRANSPORT WAITING AND AT ABOUT 1710 SAYS THAT HE IS NEEDED ELSE WHERE AND WILL HAVE TO COME BACK. TRANSPORT LEFT UNIT AND PT IS REFUSING TO LEAVE AT THIS TIME PER SOFIA. WILL CTM
--- NOTE | 2019-05-15 17:42 | NUR ---
PT REFUSING DISCHARGE. DR. COCHRAN MADE AWARE AT THIS TIME [facility]. BRITTNY REYES TO VISIT PT IN THE MORNING AND DISCUSS DISCHARGE FURTHER.
--- NOTE | 2019-05-15 18:40 | NUR ---
SUMMARY: NO ACUTE CHANGE SINCE LAST NOTE BY THIS RN. PT RESTING QUIETLY NOW. VSS TODAY WELL TELE. CSM INTACT TO R LEG. NO SAFETY CONCERNS. WILL REPORT TO NOC RN
--- NOTE | 2019-05-16 04:03 | NUR ---
SHIFT SUMMARY PT IS A/O. PT HAS BEEN RESTING QUIETLY THIS SHIFT. NO C/O PAIN AT REST. PT HAS BEEN REPOSITIONED THROUGHOUT THE NIGHT. TOLERATING PO INTAKE AND VOIDING IN URINAL. NO ACUTE EVENTS OVERNIGHT. ASSISTED WITH ADL'S PRN.
--- NOTE | 2019-05-16 09:24 | NUR ---
PT WORKED WITH THERAPY EARLIER, HAD MEPILEX IN PLACE WITH BRUISING NOTED BELOW MEPILEX. PT APPEARS TO HAVE ATE BREAKFEAST WELL. PT GIVEN BOWEL CARE PT VOIDING. PT HAS DRESSING TO FOOT THAT IS CLEAN AND DRY. PT USING URINAL TO VOID. PT ATE BREAKFEAST WELL. PT TO BE MED ORDERED WELL BOWEL CARE. PPX4. MOVES ALL EXT.
--- NOTE | 2019-05-16 10:16 | NUR ---
RECENT DISCHARGE: TRANSPORT HERE TO GET PT. ANODE ADJUSTER ASSISTING WITH PT. PT SENT WITH PAPERWORK. MEDICAL OFFICE REP REPORTS WILL NOTIFY DR. COCHRAN OF PT DISCHARGE. JAXON AT [facility] GIVEN REPORT.
== END 2019-05-16 09:45 | DRG 481 ==
LOC: ER 07:54 → SURS 09:36 → ER 10:20 → SURS 11:01
PROVIDERS: Emergency Medicine; Internal Medicine; Nurse Practitioner Acute Care; Orthopaedic Surgery; ADMIT Internal Medicine
PROC: 0QS606Z Reposition Right Upper Femur with Intramedullary Internal Fixation Device, Open Approach (ICD-10-PCS; principal; 2019-05-13 08:00)
DX: S72.141A Displaced intertrochanteric fracture of right femur, initial encounter for closed fracture (principal); I50.32 Chronic diastolic (congestive) heart failure; I13.0 Hypertensive heart and chronic kidney disease with heart failure and stage 1 through stage 4 chronic kidney disease, or unspecified chronic kidney disease; N18.3 Chronic kidney disease, stage 3 (moderate); E11.22 Type 2 diabetes mellitus with diabetic chronic kidney disease; E11.51 Type 2 diabetes mellitus with diabetic peripheral angiopathy without gangrene; I25.10 Atherosclerotic heart disease of native coronary artery without angina pectoris; W19.XXXA Unspecified fall, initial encounter; K21.9 Gastro-esophageal reflux disease without esophagitis; H54.8 Legal blindness, as defined in USA; Z86.73 Personal history of transient ischemic attack (TIA), and cerebral infarction without residual deficits; Z95.1 Presence of aortocoronary bypass graft; Z89.422 Acquired absence of other left toe(s); Z89.421 Acquired absence of other right toe(s); Z79.02 Long term (current) use of antithrombotics/antiplatelets; Z79.82 Long term (current) use of aspirin; Z79.4 Long term (current) use of insulin; Z79.899 Other long term (current) drug therapy
CPT/HCPCS: 36415; 71045; 73502; 80048; 80053; 82947; 85014; 85018; 85025; 85610; 85730; 93005; 93010; 97110; 97163; 97167; 97530; 99285-25; A9270-GY; C1713; J0690; J1650; J2370; J2405; J2704; J2710; J3010; J7030

== ENCOUNTER → 2019-06-25 | Outpatient (CLI) | payer OTHER ==
[~2019-06-25] MED LIST changes: +Bumetanide2 MG PO; +ERGO50000 PO; +NOVOLOG100 UNIT/1 SC
[2019-06-25 04:29] LABS: BASOPHILS ABSOLUTE AUTO 0.02 K/mm3 (0.00-0.23); BASOPHILS PERCENT AUTO 0 % (0-2); EOSINOPHILS ABSOLUTE AUTO 0.68 K/mm3 (0.00-0.68); EOSINOPHILS PERCENT AUTO 7 % (0-6); Hematocrit 34.1 % (37.0-53.0); Hemoglobin 10.9 g/dL (13.5-17.5); IMMATURE GRAN ABSOLUTE AUTO 0.02 K/mm3 (0.00-0.10); IMMATURE GRAN PERCENT AUTO 0 % (0-1); LYMPHOCYTES ABSOLUTE AUTO 1.22 K/mm3 (0.84-5.20); LYMPHOCYTES PERCENT AUTO 13 % (21-46); MONOCYTES ABSOLUTE AUTO 0.82 K/mm3 (0.16-1.47); MONOCYTES PERCENT AUTO 9 % (4-13); Mean Corpuscular HGB 28.9 pg (26.0-34.0); Mean Corpuscular Volume 91 fL (80-100); NEUTROPHILS ABSOLUTE AUTO 6.88 K/mm3 (1.96-9.15); NEUTROPHILS PERCENT AUTO 71 % (41-73); Platelet Count 241 K/mm3 (150-400); RDW Coefficient Variation 13.5 % (11.7-14.2); RDW Standard Deviation 45.1 fL (35.1-46.3); Red Blood Cell Count 3.77 M/mm3 (4.30-5.90); White Blood Cell Count 9.64 K/mm3 (4.00-11.30)
== END | disposition home or self-care (01) ==
LOC: LAB UVN 04:19 → EDSTATUS 11:25
PROVIDERS: Nurse Practitioner Primary Care
DX: L03.119 Cellulitis of unspecified part of limb (principal); I25.10 Atherosclerotic heart disease of native coronary artery without angina pectoris; I50.32 Chronic diastolic (congestive) heart failure
CPT/HCPCS: 85025; 85651

== ENCOUNTER → 2019-07-02 | Outpatient (CLI) | payer OTHER | END | disposition home or self-care (01) | LOC: LAB UVN 04:36 → EDSTATUS 13:07 | DX: M10.9 Gout, unspecified (principal) | CPT/HCPCS: 84550 ==

== ENCOUNTER → 2019-07-16 | Outpatient (CLI) | payer OTHER | END | disposition home or self-care (01) | LOC: LAB SHORT 14:32 → LAB 14:32 | DX: E11.65 Type 2 diabetes mellitus with hyperglycemia (principal); L89.893 Pressure ulcer of other site, stage 3 | CPT/HCPCS: 87070; 87075; 87077; 87186; 87205 ==

== ENCOUNTER 2019-08-15 00:23 | Day surgery (SDC) | payer OTHER | END 2019-08-15 22:57 | disposition home or self-care (01) | LOC: WOUND 00:23 | DX: E11.621 Type 2 diabetes mellitus with foot ulcer (principal); L97.522 Non-pressure chronic ulcer of other part of left foot with fat layer exposed; L89.890 Pressure ulcer of other site, unstageable; E11.42 Type 2 diabetes mellitus with diabetic polyneuropathy; I25.10 Atherosclerotic heart disease of native coronary artery without angina pectoris; H54.7 Unspecified visual loss; K21.9 Gastro-esophageal reflux disease without esophagitis; I12.9 Hypertensive chronic kidney disease with stage 1 through stage 4 chronic kidney disease, or unspecified chronic kidney disease; N18.9 Chronic kidney disease, unspecified; E11.22 Type 2 diabetes mellitus with diabetic chronic kidney disease; Z95.1 Presence of aortocoronary bypass graft; Z88.5 Allergy status to narcotic agent | CPT/HCPCS: G0463 ==

== ENCOUNTER 2019-08-22 00:34 | Day surgery (SDC) | payer OTHER | END 2019-08-22 23:15 | disposition home or self-care (01) | LOC: WOUND 00:34 | DX: E11.621 Type 2 diabetes mellitus with foot ulcer (principal); L97.522 Non-pressure chronic ulcer of other part of left foot with fat layer exposed; L89.890 Pressure ulcer of other site, unstageable; E11.42 Type 2 diabetes mellitus with diabetic polyneuropathy; I10 Essential (primary) hypertension; H54.7 Unspecified visual loss; Z89.429 Acquired absence of other toe(s), unspecified side ==

== ENCOUNTER 2019-08-29 00:08 | Day surgery (SDC) | payer OTHER | END 2019-08-29 23:02 | disposition home or self-care (01) | LOC: WOUND 00:08 | DX: E11.621 Type 2 diabetes mellitus with foot ulcer (principal); L97.522 Non-pressure chronic ulcer of other part of left foot with fat layer exposed; L89.623 Pressure ulcer of left heel, stage 3; E11.42 Type 2 diabetes mellitus with diabetic polyneuropathy; I25.10 Atherosclerotic heart disease of native coronary artery without angina pectoris; I10 Essential (primary) hypertension ==

== ENCOUNTER → 2019-10-21 | Outpatient (CLI) | payer OTHER ==
[2019-10-21 11:58] LABS: Bilirubin, Urine Neg (Neg); Blood, Urine Neg (Neg); Glucose Qualitative, Urine 2+ (Neg); Ketones, Urine Neg (Neg); Leukocyte Esterase, Urine Neg (Neg); Nitrite, Urine Neg (Neg); Protein, Urine 2+ (Neg); Urobilinogen, Urine NORM (Normal)
[2019-10-21 12:14] LABS: Appearance, Urine Clear (Clear); Color, Urine Yellow (P-Yellow)
[2019-10-21 12:15] LABS: White Blood Cells, Urine 0-2 /hpf (0-5)
[2019-10-21 12:16] LABS: Bacteria Rare /hpf; Red Blood Cells, Urine 0-2 /hpf (0-2); Squamous Epithelial Cells Few /hpf (Few)
== END ==
LOC: LAB 11:43 → LAB SHORT 11:43
PROVIDERS: Student in an Organized Health Care Education/Training Program
DX: N39.0 Urinary tract infection, site not specified (principal)
CPT/HCPCS: 81001; 87077; 87086; 87186

== ENCOUNTER → 2019-11-06 | Outpatient (CLI) | payer OTHER ==
[2019-11-06 12:42] LABS: Bilirubin, Urine Neg (Neg); Blood, Urine 2+ (Neg); Glucose Qualitative, Urine 3+ (Neg); Ketones, Urine Neg (Neg); Leukocyte Esterase, Urine 3+ (Neg); Nitrite, Urine Pos (Neg); Protein, Urine 2+ (Neg); Urobilinogen, Urine NORM (Normal); pH, Urine 6.5 (5.0-8.0)
[2019-11-06 13:14] LABS: Appearance, Urine Hazy (Clear); Color, Urine Yellow (P-Yellow)
[2019-11-06 13:17] LABS: White Blood Cells, Urine 25-50 /hpf (0-5)
[2019-11-06 13:18] LABS: Bacteria Many /hpf; Squamous Epithelial Cells Few /hpf (Few)
== END | disposition home or self-care (01) ==
LOC: LAB SHORT 11:03 → LAB 11:03
PROVIDERS: Student in an Organized Health Care Education/Training Program
DX: R35.0 Frequency of micturition (principal)
CPT/HCPCS: 81001; 87086

== ENCOUNTER 2019-11-07 00:32 | Day surgery (SDC) | payer OTHER | END 2019-11-07 23:40 | disposition home or self-care (01) | LOC: WOUND 00:32 | DX: E11.621 Type 2 diabetes mellitus with foot ulcer (principal); L97.522 Non-pressure chronic ulcer of other part of left foot with fat layer exposed; E11.42 Type 2 diabetes mellitus with diabetic polyneuropathy; L89.623 Pressure ulcer of left heel, stage 3; Z79.4 Long term (current) use of insulin ==

== ENCOUNTER → 2019-11-09 | Outpatient (CLI) | payer OTHER | END | disposition home or self-care (01) | LOC: LAB 14:05 → LAB SHORT 14:05 | DX: N39.0 Urinary tract infection, site not specified (principal) | CPT/HCPCS: 87077; 87086; 87186 ==

== ENCOUNTER 2019-11-14 00:37 | Day surgery (SDC) | payer OTHER | END 2019-11-14 22:44 | disposition home or self-care (01) | LOC: WOUND 00:37 | DX: E11.621 Type 2 diabetes mellitus with foot ulcer (principal); L97.522 Non-pressure chronic ulcer of other part of left foot with fat layer exposed; L89.623 Pressure ulcer of left heel, stage 3; E11.42 Type 2 diabetes mellitus with diabetic polyneuropathy; H54.8 Legal blindness, as defined in USA; I10 Essential (primary) hypertension; Z79.899 Other long term (current) drug therapy; Z79.02 Long term (current) use of antithrombotics/antiplatelets; Z79.4 Long term (current) use of insulin ==

== ENCOUNTER → 2019-11-22 | Outpatient (CLI) | payer OTHER ==
[2019-11-22 15:48] LABS: Appearance, Urine Clear (Clear); Bilirubin, Urine Neg (Neg); Blood, Urine Neg (Neg); Color, Urine Yellow (P-Yellow); Glucose Qualitative, Urine Neg (Neg); Ketones, Urine Neg (Neg); Leukocyte Esterase, Urine Neg (Neg); Nitrite, Urine Neg (Neg); Protein, Urine Neg (Neg); Specific Gravity, Urine 1.015 (1.003-1.022); Urobilinogen, Urine NORM (Normal)
== END | disposition home or self-care (01) ==
LOC: LAB 14:42 → LAB SHORT 14:42
PROVIDERS: Student in an Organized Health Care Education/Training Program
DX: N39.0 Urinary tract infection, site not specified (principal)
CPT/HCPCS: 81003

== ENCOUNTER 2019-12-05 00:36 | Day surgery (SDC) | payer OTHER, MEDICARE | END 2019-12-05 22:53 | disposition home or self-care (01) | LOC: WOUND 00:36 | DX: E11.621 Type 2 diabetes mellitus with foot ulcer (principal); E11.42 Type 2 diabetes mellitus with diabetic polyneuropathy; L97.522 Non-pressure chronic ulcer of other part of left foot with fat layer exposed; L89.623 Pressure ulcer of left heel, stage 3; Z79.4 Long term (current) use of insulin | CPT/HCPCS: G0463 ==

== ENCOUNTER 2019-12-11 00:10 | Day surgery (SDC) | payer MEDICARE, OTHER | END 2019-12-11 22:41 | disposition home or self-care (01) | LOC: WOUND 00:10 | DX: E11.621 Type 2 diabetes mellitus with foot ulcer (principal); L97.522 Non-pressure chronic ulcer of other part of left foot with fat layer exposed; E11.52 Type 2 diabetes mellitus with diabetic peripheral angiopathy with gangrene; I96 Gangrene, not elsewhere classified; L89.622 Pressure ulcer of left heel, stage 2; E11.42 Type 2 diabetes mellitus with diabetic polyneuropathy; E11.36 Type 2 diabetes mellitus with diabetic cataract; H26.9 Unspecified cataract; E11.69 Type 2 diabetes mellitus with other specified complication; M86.9 Osteomyelitis, unspecified; H40.9 Unspecified glaucoma; D64.9 Anemia, unspecified; G47.30 Sleep apnea, unspecified; I25.10 Atherosclerotic heart disease of native coronary artery without angina pectoris; I11.0 Hypertensive heart disease with heart failure; I50.9 Heart failure, unspecified; I25.2 Old myocardial infarction; M10.9 Gout, unspecified; M19.90 Unspecified osteoarthritis, unspecified site; Z88.5 Allergy status to narcotic agent; Z79.02 Long term (current) use of antithrombotics/antiplatelets; Z79.4 Long term (current) use of insulin; Z79.82 Long term (current) use of aspirin; Z79.899 Other long term (current) drug therapy | CPT/HCPCS: G0463 ==

== ENCOUNTER → 2019-12-14 | Outpatient (CLI) | payer OTHER ==
[2019-12-14 17:52] LABS: Source, Urine Clean Catch
[2019-12-14 19:55] LABS: Appearance, Urine Clear (Clear); Bilirubin, Urine Neg (Neg); Blood, Urine 1+ (Neg); Color, Urine Yellow (P-Yellow); Glucose Qualitative, Urine 3+ (Neg); Ketones, Urine Neg (Neg); Leukocyte Esterase, Urine 1+ (Neg); Nitrite, Urine Pos (Neg); Protein, Urine 1+ (Neg); Urobilinogen, Urine NORM (Normal)
[2019-12-14 20:13] LABS: Bacteria Rare /hpf; Red Blood Cells, Urine 0-2 /hpf (0-2); Squamous Epithelial Cells Rare /hpf (Few)
== END | disposition home or self-care (01) ==
LOC: LAB SHORT 17:45 → LAB 17:45
PROVIDERS: Internal Medicine Nephrology
DX: N39.0 Urinary tract infection, site not specified (principal)
CPT/HCPCS: 81001; 87077; 87086; 87186

== ENCOUNTER 2019-12-19 00:33 | Day surgery (SDC) | payer MEDICARE, OTHER | END 2019-12-19 22:40 | disposition home or self-care (01) | LOC: WOUND 00:33 | DX: E11.621 Type 2 diabetes mellitus with foot ulcer (principal); L97.522 Non-pressure chronic ulcer of other part of left foot with fat layer exposed; L89.623 Pressure ulcer of left heel, stage 3; E11.42 Type 2 diabetes mellitus with diabetic polyneuropathy; Z79.02 Long term (current) use of antithrombotics/antiplatelets; Z79.4 Long term (current) use of insulin | CPT/HCPCS: G0463 ==

== ENCOUNTER 2019-12-26 00:46 | Day surgery (SDC) | payer MEDICARE, OTHER | END 2019-12-26 12:00 | disposition home or self-care (01) | LOC: WOUND 00:46 | DX: E11.621 Type 2 diabetes mellitus with foot ulcer (principal); L97.422 Non-pressure chronic ulcer of left heel and midfoot with fat layer exposed; E11.36 Type 2 diabetes mellitus with diabetic cataract; H26.9 Unspecified cataract; H40.9 Unspecified glaucoma; E11.42 Type 2 diabetes mellitus with diabetic polyneuropathy; E11.69 Type 2 diabetes mellitus with other specified complication; M86.8X9 Other osteomyelitis, unspecified sites; E11.51 Type 2 diabetes mellitus with diabetic peripheral angiopathy without gangrene; D64.9 Anemia, unspecified; G47.30 Sleep apnea, unspecified; I11.0 Hypertensive heart disease with heart failure; I50.9 Heart failure, unspecified; I25.10 Atherosclerotic heart disease of native coronary artery without angina pectoris; I95.9 Hypotension, unspecified; I25.2 Old myocardial infarction; E07.9 Disorder of thyroid, unspecified; I73.00 Raynaud's syndrome without gangrene; M10.9 Gout, unspecified; M19.90 Unspecified osteoarthritis, unspecified site; F03.90 Unspecified dementia, unspecified severity, without behavioral disturbance, psychotic disturbance, mood disturbance, and anxiety; Z79.02 Long term (current) use of antithrombotics/antiplatelets; Z79.4 Long term (current) use of insulin; Z79.82 Long term (current) use of aspirin; Z79.899 Other long term (current) drug therapy | CPT/HCPCS: G0463 ==

== ENCOUNTER 2020-01-02 00:37 | Day surgery (SDC) | payer MEDICARE, OTHER | END 2020-01-02 22:48 | disposition home or self-care (01) | LOC: WOUND 00:37 | DX: E11.621 Type 2 diabetes mellitus with foot ulcer (principal); L97.522 Non-pressure chronic ulcer of other part of left foot with fat layer exposed; L89.623 Pressure ulcer of left heel, stage 3; E11.42 Type 2 diabetes mellitus with diabetic polyneuropathy; I10 Essential (primary) hypertension; H54.7 Unspecified visual loss; Z79.899 Other long term (current) drug therapy; Z79.02 Long term (current) use of antithrombotics/antiplatelets; Z79.4 Long term (current) use of insulin | CPT/HCPCS: G0463 ==

== ENCOUNTER → 2020-01-03 | Outpatient (CLI) | payer OTHER ==
[2020-01-03 16:27] LABS: Bilirubin, Urine Neg (Neg); Blood, Urine 2+ (Neg); Glucose Qualitative, Urine 4+ (Neg); Ketones, Urine Neg (Neg); Leukocyte Esterase, Urine Neg (Neg); Nitrite, Urine Pos (Neg); Protein, Urine 2+ (Neg); Specific Gravity, Urine 1.005 (1.003-1.022); Urobilinogen, Urine NORM (Normal)
[2020-01-03 16:39] LABS: Appearance, Urine Hazy (Clear); Color, Urine Yellow (P-Yellow)
[2020-01-03 16:41] LABS: Bacteria Many /hpf; Squamous Epithelial Cells Few /hpf (Few)
== END | disposition home or self-care (01) ==
LOC: LAB 13:45 → LAB SHORT 13:45
PROVIDERS: Student in an Organized Health Care Education/Training Program
DX: N39.0 Urinary tract infection, site not specified (principal)
CPT/HCPCS: 81001; 87077; 87086; 87186

== ENCOUNTER 2020-01-16 03:16 | Day surgery (SDC) | payer MEDICARE, OTHER | END 2020-01-16 23:27 | disposition home or self-care (01) | LOC: WOUND 03:16 | DX: E11.621 Type 2 diabetes mellitus with foot ulcer (principal); L97.421 Non-pressure chronic ulcer of left heel and midfoot limited to breakdown of skin; E11.42 Type 2 diabetes mellitus with diabetic polyneuropathy; E11.69 Type 2 diabetes mellitus with other specified complication; M86.8X8 Other osteomyelitis, other site; I13.0 Hypertensive heart and chronic kidney disease with heart failure and stage 1 through stage 4 chronic kidney disease, or unspecified chronic kidney disease; E11.22 Type 2 diabetes mellitus with diabetic chronic kidney disease; N18.30 Chronic kidney disease, stage 3 unspecified; I50.9 Heart failure, unspecified; E11.36 Type 2 diabetes mellitus with diabetic cataract; H26.9 Unspecified cataract; H40.9 Unspecified glaucoma; I25.2 Old myocardial infarction; E11.51 Type 2 diabetes mellitus with diabetic peripheral angiopathy without gangrene; E07.9 Disorder of thyroid, unspecified; I73.00 Raynaud's syndrome without gangrene; M10.9 Gout, unspecified; M19.90 Unspecified osteoarthritis, unspecified site; F03.90 Unspecified dementia, unspecified severity, without behavioral disturbance, psychotic disturbance, mood disturbance, and anxiety; H54.8 Legal blindness, as defined in USA; Z89.429 Acquired absence of other toe(s), unspecified side; Z95.1 Presence of aortocoronary bypass graft; Z86.73 Personal history of transient ischemic attack (TIA), and cerebral infarction without residual deficits; Z99.3 Dependence on wheelchair; Z79.02 Long term (current) use of antithrombotics/antiplatelets; Z79.4 Long term (current) use of insulin; Z79.899 Other long term (current) drug therapy; Z51.5 Encounter for palliative care ==

== ENCOUNTER → 2020-01-17 | Outpatient (CLI) | payer OTHER ==
[2020-01-17 18:31] LABS: Creatinine Urine 40.1 mg/dL (27.00-270.00); Protein, Urine Quantitative 19.8 mg/dL (0.0-11.9)
[2020-01-17 18:35] LABS: Microalbumin, Urine Quant. 34.9 mg/L (0.000-20.000)
== END | disposition home or self-care (01) ==
LOC: LAB 17:02 → LAB SHORT 17:02 → LAB FUT 01-15 17:15
PROVIDERS: Internal Medicine Nephrology
DX: N18.30 Chronic kidney disease, stage 3 unspecified (principal); D63.1 Anemia in chronic kidney disease; N25.81 Secondary hyperparathyroidism of renal origin; E55.9 Vitamin D deficiency, unspecified; E78.00 Pure hypercholesterolemia, unspecified; D51.8 Other vitamin B12 deficiency anemias; D52.8 Other folate deficiency anemias; D50.9 Iron deficiency anemia, unspecified; R76.9 Abnormal immunological finding in serum, unspecified; R94.5 Abnormal results of liver function studies; R94.6 Abnormal results of thyroid function studies
CPT/HCPCS: 81050; 82043; 82570; 84156

== ENCOUNTER → 2020-01-18 | Outpatient (CLI) | payer MEDICARE, OTHER ==
[2020-01-18 19:24] LABS: Bilirubin, Urine Neg (Neg); Blood, Urine 1+ (Neg); Glucose Qualitative, Urine 4+ (Neg); Ketones, Urine Neg (Neg); Leukocyte Esterase, Urine Neg (Neg); Nitrite, Urine Pos (Neg); Protein, Urine Neg (Neg); Urobilinogen, Urine NORM (Normal)
[2020-01-18 19:43] LABS: Appearance, Urine Clear (Clear); Color, Urine Pale Yellow (P-Yellow)
[2020-01-18 19:44] LABS: Bacteria Rare /hpf; Red Blood Cells, Urine 0-2 /hpf (0-2); Squamous Epithelial Cells Not Seen /hpf (Few); White Blood Cells, Urine Rare /hpf (0-5)
== END ==
LOC: LAB SHORT 18:32 → LAB 18:32
PROVIDERS: Student in an Organized Health Care Education/Training Program
DX: N39.0 Urinary tract infection, site not specified (principal)
CPT/HCPCS: 81001; 87086

== ENCOUNTER → 2020-02-05 | Outpatient (CLI) | payer OTHER ==
[2020-02-06 18:35] LABS: Free Thyroxine 1.01 ng/dL (0.70-1.60); Thyroid Stimulating Hormone 5.45 uIU/mL (0.360-4.800)
== END | disposition home or self-care (01) ==
LOC: LAB 15:30 → LAB SHORT 15:30
PROVIDERS: Student in an Organized Health Care Education/Training Program
DX: Z13.29 Encounter for screening for other suspected endocrine disorder (principal); E11.65 Type 2 diabetes mellitus with hyperglycemia
CPT/HCPCS: 83036; 84439; 84443

== ENCOUNTER → 2020-02-12 | Outpatient (CLI) | payer OTHER ==
[2020-02-12 16:01] LABS: Appearance, Urine Clear (Clear); Bilirubin, Urine Neg (Neg); Blood, Urine Neg (Neg); Color, Urine Yellow (P-Yellow); Glucose Qualitative, Urine Neg (Neg); Ketones, Urine Neg (Neg); Leukocyte Esterase, Urine 1+ (Neg); Nitrite, Urine Neg (Neg); Protein, Urine Neg (Neg); Urobilinogen, Urine NORM (Normal)
[2020-02-12 16:25] LABS: Red Blood Cells, Urine 0-2 /hpf (0-2); Squamous Epithelial Cells Rare /hpf (Few)
[2020-02-12 16:26] LABS: Bacteria Rare /hpf
== END | disposition home or self-care (01) ==
LOC: LAB 13:58 → LAB SHORT 13:58
PROVIDERS: Student in an Organized Health Care Education/Training Program
DX: N39.0 Urinary tract infection, site not specified (principal)
CPT/HCPCS: 81001; 87077; 87086; 87186

== ENCOUNTER 2020-03-24 22:08 | Emergency (ER) | payer OTHER ==
[~2020-03-24] VITALS: Ht 175.3 cm; Wt 104.3 kg
[2020-03-24 23:53] LABS: International Normalized Ratio 0.96; Prothrombin Time Results 10.3 Sec (9.7-11.5)
== END 2020-03-25 02:29 | disposition home or self-care (01) ==
LOC: ER 22:08
PROVIDERS: Student in an Organized Health Care Education/Training Program
DX: S52.501A Unspecified fracture of the lower end of right radius, initial encounter for closed fracture (principal); R04.0 Epistaxis; E11.9 Type 2 diabetes mellitus without complications; I11.0 Hypertensive heart disease with heart failure; I50.9 Heart failure, unspecified; K21.9 Gastro-esophageal reflux disease without esophagitis; Z86.73 Personal history of transient ischemic attack (TIA), and cerebral infarction without residual deficits; Z95.1 Presence of aortocoronary bypass graft; Z79.82 Long term (current) use of aspirin; Z79.4 Long term (current) use of insulin; Z79.899 Other long term (current) drug therapy; Z79.02 Long term (current) use of antithrombotics/antiplatelets; W01.190A Fall on same level from slipping, tripping and stumbling with subsequent striking against furniture, initial encounter
CPT/HCPCS: 29125; 70450; 73110; 85610; 99284-25; A9270; L3917

== ENCOUNTER → 2021-01-31 | Outpatient (CLI) | payer OTHER ==
[2021-01-31 13:33] LABS: Bilirubin, Urine Neg (Neg); Blood, Urine Neg (Neg); Color, Urine Yellow (P-Yellow); Glucose Qualitative, Urine Neg (Neg); Ketones, Urine Neg (Neg); Leukocyte Esterase, Urine 1+ (Neg); Nitrite, Urine Pos (Neg); Protein, Urine 1+ (Neg); Urobilinogen, Urine NORM (Normal)
[2021-01-31 14:41] LABS: Appearance, Urine Clear (Clear)
[2021-01-31 16:22] LABS: Bacteria Few /hpf; Red Blood Cells, Urine 0-2 /hpf (0-2); Squamous Epithelial Cells Rare /hpf (Few)
== END ==
LOC: LAB SHORT 11:00
PROVIDERS: Student in an Organized Health Care Education/Training Program
DX: N39.0 Urinary tract infection, site not specified (principal)
CPT/HCPCS: 81001; 87077; 87086; 87186

== ENCOUNTER 2021-06-12 15:41 | Emergency (ER) | payer OTHER ==
[~2021-06-12] VITALS: Ht 177.8 cm; Wt 122.5 kg
[~2021-06-12 15:41] MED LIST changes: +BASAGLAR K100 UNIT/3 SC; +CEPH500 PO; +FUROSEMIDE40 MG PO; +GLIP5ER PO; +LATANOPROST2.5 ML LEFTEYE; +NOVOLOG FL100 UNIT/3 SQ; +SULFAMETHOXAZO1 EACH PO
[2021-06-12] MEDS ORDERED: CIPR500 PO (16:16)
[2021-06-12] MEDS ORDERED: Voltaren100 GM TOP (16:16)
[2021-06-12] MEDS ORDERED: Vitamin D1000 UNI1 (16:19)
[2021-06-12] MEDS ORDERED: Acetaminophen650 M1 PO (16:22)
[2021-06-12] MEDS ORDERED: Haloperidol1 MG PO (16:28)
[2021-06-12] MEDS ORDERED: Norco 5-325 Ta1 EACH PO (17:01)
== END 2021-06-12 19:20 | disposition home or self-care (01) ==
LOC: ER 15:41
DX: L03.115 Cellulitis of right lower limb (principal); L03.116 Cellulitis of left lower limb; E11.9 Type 2 diabetes mellitus without complications; I11.0 Hypertensive heart disease with heart failure; I50.9 Heart failure, unspecified; K21.9 Gastro-esophageal reflux disease without esophagitis; M19.90 Unspecified osteoarthritis, unspecified site; Z86.73 Personal history of transient ischemic attack (TIA), and cerebral infarction without residual deficits; Z88.5 Allergy status to narcotic agent; Z79.4 Long term (current) use of insulin; Z79.84 Long term (current) use of oral hypoglycemic drugs; Z79.899 Other long term (current) drug therapy
CPT/HCPCS: 99283; A9270

== ENCOUNTER 2021-06-26 03:07 | Day surgery (SDC) | payer OTHER ==
[~2021-06-26 03:07] MED LIST changes: +Acetaminophen650 M1 PO; +CIPR500 PO; +Haloperidol1 MG PO; +Vitamin D1000 UNI1; +Voltaren100 GM TOP
== END 2021-06-26 23:24 | disposition home or self-care (01) ==
LOC: WOUND 03:07
DX: E11.621 Type 2 diabetes mellitus with foot ulcer (principal); L97.429 Non-pressure chronic ulcer of left heel and midfoot with unspecified severity; E11.622 Type 2 diabetes mellitus with other skin ulcer; L97.812 Non-pressure chronic ulcer of other part of right lower leg with fat layer exposed; L97.822 Non-pressure chronic ulcer of other part of left lower leg with fat layer exposed; L97.829 Non-pressure chronic ulcer of other part of left lower leg with unspecified severity; L89.890 Pressure ulcer of other site, unstageable; E11.51 Type 2 diabetes mellitus with diabetic peripheral angiopathy without gangrene; I87.2 Venous insufficiency (chronic) (peripheral); E11.42 Type 2 diabetes mellitus with diabetic polyneuropathy; I10 Essential (primary) hypertension; Z88.5 Allergy status to narcotic agent; Z87.891 Personal history of nicotine dependence; K21.9 Gastro-esophageal reflux disease without esophagitis; I25.10 Atherosclerotic heart disease of native coronary artery without angina pectoris; N18.9 Chronic kidney disease, unspecified; E11.22 Type 2 diabetes mellitus with diabetic chronic kidney disease; Z95.1 Presence of aortocoronary bypass graft
CPT/HCPCS: G0463

== ENCOUNTER → 2021-07-20 | Outpatient (CLI) | payer OTHER ==
[2021-07-20 15:55] LABS: Alanine Aminotransfer (ALT/SGP 24 U/L (12-78); Albumin, Blood 3.4 g/dL (3.4-5.0); Albumin/Globulin Ratio 0.6 (0.8-1.8); Alk Phos 118 U/L (50-136); Anion Gap 6 mmol/L (6-16); Aspartate Aminotrans (AST/SGOT 16 U/L (12-37); Bilirubin, Total 0.6 mg/dL (0.1-1.0); Blood Urea Nitrogen 46 mg/dL (8-24); CHOL/HDL RATIO 3.6; CO2, Blood 27 mmol/L (21-32); Calcium, Blood 8.9 mg/dL (8.5-10.1); Chloride, Blood 102 mmol/L (98-108); Cholesterol 143 mg/dL (50-200); Globulin, Blood 5.6 g/dL (2.2-4.0); Glucose, Blood 61 mg/dL (70-99); HDL Cholesterol 40 mg/dL (>39); LDL/HDL RATIO 2.1; Low Density Lipoprotein Chol 85 mg/dL (0-110); Potassium, Blood 4.2 mmol/L (3.5-5.5); Sodium, Blood 135 mmol/L (136-145); Triglycerides 92 mg/dL (30-160); Very Low Density Lipoprot Chol 18 mg/dL (6-32)
[2021-07-20 15:56] LABS: Bun/Creatinine Ratio 22.1 (12.0-20.0); Creatinine, Blood 2.08 mg/dL (0.60-1.20); Glomerular Filtration Rate 31 (60-)
== END ==
LOC: LAB SHORT 13:45 → LAB 13:45
PROVIDERS: Nurse Practitioner Family
DX: I11.0 Hypertensive heart disease with heart failure (principal); I50.9 Heart failure, unspecified; D64.9 Anemia, unspecified; I25.2 Old myocardial infarction; L89.890 Pressure ulcer of other site, unstageable
CPT/HCPCS: 80053; 80061

== ENCOUNTER 2021-07-28 05:42 | Emergency (ER) | payer OTHER ==
[~2021-07-28] VITALS: Ht 177.8 cm; Wt 104.3 kg
== END 2021-07-28 08:28 | disposition home or self-care (01) ==
LOC: ER 05:42
DX: S40.012A Contusion of left shoulder, initial encounter (principal); E11.9 Type 2 diabetes mellitus without complications; I11.0 Hypertensive heart disease with heart failure; I50.9 Heart failure, unspecified; W05.0XXA Fall from non-moving wheelchair, initial encounter; Z86.73 Personal history of transient ischemic attack (TIA), and cerebral infarction without residual deficits; Z95.1 Presence of aortocoronary bypass graft; Z79.899 Other long term (current) drug therapy
CPT/HCPCS: 73030; 99283-25